=== PATIENT | female | born 1990 | race African-American/Black ===

== ENCOUNTER 2016-09-05 22:11 | Inpatient (IN) ==
[2016-09-06 01:15] LABS: Basophils # 0.1 10*3/uL (0.0-0.2); Basophils % 0.3 % (0.0-0.8); Eosinophils # 0.9 10*3/uL (0.0-0.87); Eosinophils % 5.7 % (0.00-10.9); Hematocrit 35.9 VOL% (35.7-47.0); Hemoglobin 11.4 GM/DL (12.0-16.0); Immature Granulocytes % 0.5 %; Immature Granulocytes Absolute 0.08 #; Lymphocytes # 2.7 10*3/uL (1.4-4.0); Lymphocytes % 17.7 % (21.3-54.2); Mean Corpuscular HGB Conc 31.8 GM/DL (32-36); Mean Corpuscular Hemoglobin 28 PG (27-34); Mean Corpuscular Volume 88.9 FL (87-102); Mean Platelet Volume 11.8 FL (9.6-12.0); Monocytes # 1.5 10*3/uL (0.11-0.8); Monocytes % 9.9 % (1.7-12.7); Neutrophils # 9.9 10*3/uL (1.4-7.4); Neutrophils % 65.9 % (38.7-73.9); Platelet Count 215 T/CUMM (130-400); Red Blood Count 4.04 MC/CUMM (3.8-5.5); Red Cell Distribution Width 12.5 % (9.3-17.3)
[2016-09-06] MEDS ORDERED: ALBUTEROL/IPRATROPIUM 3 ML NEB RESP TX STA (01:20)
--- NOTE | 2016-09-06 01:23 | Emergency Department Note ---
IRubin Gwan, am scribing for, and in the presence of, Rudolph Baez MD 23:40. INestor Kevin Lee, MD, personally performed the services described in this documentation, ascribed by Jose Luis Conklin in my presence, and it is both accurate and complete . Arrival - Arrival Chief Complaint: Upper Respiratory Stated Complaint: weak,chest pain,nausea ED Nursing Triage Note: pt states she went to immediate care clinic today with fever and chest congestion. was diagnosed with pneumonia and asthma exacerbation and bronchiectasis. was given antibiotics but states she is feeling worse Mode of Arrival: Ambulatory Limitations: No Limitations Source: Patient, Old Records Reviewed, RN Notes Reviewed Time Seen by Provider: 09/05/16 23:32 - History of Present Illness HPI Narrative: Pt is a 25 y/o female, with a hx of asthma, who presents to the ED with a c/o chest pain that radiates to back, chest congestion and generalized weakness. Patient stated that she reported to [facility] today due to her sxs and that she was given an x-ray that resulted in dx of pneumonias and bronchiectasis. She continued to note that she has taken some of her antibiotics with no relief prompting her visit to the ED tonight. Patient confirmed that she was given antibiotics and that she was instructed to take a Z -Pack every M//. She denies any fever. Patient is follolwed by Dr. Bernard. No other problems/complaints reported in ED. Onset (ago): hour(s) Consistency: constant Severity: moderate Date of Last Menstrual Period: 07/2016 Allergies/Adverse Reactions: Allergies Allergy/AdvReac Type Severity Reaction Status Date / Time No Known Allergies Allergy Unverified 10/15/15 18:01 Home Medications: Home Medications Medication Instructions Recorded Confirmed Type Mometasone/Formoterol 100-5 2 puff INH BID 06/28/16 06/28/16 History [Dulera 100-5] Montelukast Tab [Singulair Tab] 10 mg PO DAILY #30 tablet 06/28/16 Rx Review of System - Review of System 12 point system: reviewed and no additional remarkable complaints except as stated - Review of System Constitutional: Present: as per HPI, weakness Respiratory: Present: as per HPI, other (chest congestion) Cardiovascular: Present: as per HPI, chest pain Medical,Surgical,& Family Hx - Medical History Cardio: No history of: Hypertension Neurology: History of: Seizures (Childhood. Not on meds at this time.) Respiratory: History of: Asthma, Bronchitis (bronchiectasis) - Surgical History HEENT Surgeries: Surgical HX of: Tonsilectomy & Adenoidectomy Reproductive Surgeries: Surgical HX of;: Gynecologic Surgery (breast reduction) - Family History Family History: Reports;: Family Hypertension - Social History Smoking Status: Never smoker Frequency of Alcohol Use: None Type of Drug Use: None Exam Vital Signs: Vital Signs Temperature 97.5 F L 09/05/16 23:25 Pulse Rate 100 H 09/06/16 01:32 Respiratory Rate 22 09/06/16 01:32 Blood Pressure 127/97 09/05/16 23:25 O2 Sat by Pulse Oximetry 100 09/06/16 01:32 - General General appearance: alert, in no apparent distress - Head Head exam: Present: atraumatic, normocephalic - Eye Eye exam: Present: normal appearance, PERRL, EOMI - ENT ENT exam: Present: normal oropharynx, mucous membranes moist, TM's normal bilaterally, normal external ear exam - Neck Neck exam: Present: full ROM, trachea midline. Absent: tenderness - Chest Chest inspection: Present: symmetric chest wall rise. Absent: tenderness - Respiratory Respiratory exam: Present: normal lung sounds bilaterally. Absent: respiratory distress - Cardiovascular Cardiovascular exam: Present: tachycardia, normal heart sounds. Absent: murmur - Extremities Exam Extremities exam: Present: full ROM. Absent: tenderness - Back Exam Back exam: Present: full ROM - Neurological Exam Neurological exam: Present: alert, oriented X3, CN II-XII intact. Absent: motor sensory deficit - Psychiatric Psychiatric exam: Present: normal affect, normal mood - Skin Skin exam: Present: warm, dry, intact, normal color Course Course Narrative: given pts hx of bronchiectasis will admit for IV abx, pulmonary toilet, and pulm consult Results - Labs CBC & BMP: 09/05/16 00:25 09/05/16 00:25 Lab Results: I have reviewed the patients labs Labs: Laboratory Tests 09/05/16 00:25 WBC 15.0 H RBC 4.04 Hgb 11.4 L Hct 35.9 MCHC 31.8 L Plt Count 215 Lymph % (Auto) 17.7 L Neut # (Auto) 9.9 H Dane # (Auto) 1.5 H Eos # (Auto) 0.9 H Microbiology 09/05/16 01:12 Nasal Aspirate Influenza Types A,B Antigen (LISA) - Final Negative for Influenza A Ag Negative for Influenza B Ag Laboratory Tests 09/05/16 00:25 Sodium 141 Potassium 4.0 Chloride 106 Carbon Dioxide 22 Anion Gap 17.0 H BUN 10 Creatinine 0.60 Albumin/Globulin Ratio 1.0 L Laboratory Tests 09/06/16 00:25 Serum , Qual Negative - Diagnostic Findings Procedure: Chest x-ray: image reviewed by me (RLL pneumonia) Disposition Clinical Impression: Pneumonia, Bronchiectasis Case discussed with: patient Disposition: Still a Patient Condition: Stable
[2016-09-06 01:38] LABS: Albumin 3.5 G/DL (3.4-5.0); Bilirubin,Total 0.4 MG/DL (0.2-1.0); Calcium 8.8 MG/DL (8.5-10.1); Osmolality,Calculated 278.3 MOS/KG (273-304); Total Protein 6.8 G/DL (6.4-8.3)
[2016-09-06] MEDS ORDERED: cefTRIAXone 1,000 MG in SODIUM CHLORIDE 0.9% 100 ML IV STA (01:56)
[2016-09-06] MEDS ORDERED: cefTRIAXone 1,000 MG VIAL ONE (02:24)
[2016-09-06] MEDS ORDERED: SODIUM CHLORIDE 0.9% 100 ML IV ONE (02:24)
[2016-09-06] MEDS ORDERED: ALBUTEROL 2.5 MG/3 ML NEB RESP TX PRN (02:50)
--- NOTE | 2016-09-06 02:59 | Hospitalist History & Physical ---
Assessment and Plan (1) Bacterial pneumonia Status: Acute Current Visit: No (2) Bronchiectasis Status: Acute Assessment and plan: Plan for this patient will be admission to our service. Start her on IV antibiotics schedule breathing treatments and consult pulmonary for assistance. Once home meds are confirmed continue those as appropriate Current Visit: No History of Present Illness Chief complaint: Cough and fever History of present illness: Ms. Piedra is a 25 year old female with past medical history of bronchiectasis and asthma who presents to our hospital tonight. Apparently she went to immediate care clinic today with fever and chest congestion and was diagnosed with a pneumonia and asthma exacerbation. She is given antibiotics but stated that she felt worse and came to our hospital for further evaluation. She seen Dr. Bernard in the past for her bronchiectasis. I was consulted to admit her from the ER. Home Medications Medication Instructions Recorded Confirmed Type Mometasone/Formoterol 100-5 2 puff INH BID 06/28/16 06/28/16 History [Dulera 100-5] Montelukast Tab [Singulair Tab] 10 mg PO DAILY #30 tablet 06/28/16 Rx Allergies Allergy/AdvReac Type Severity Reaction Status Date / Time No Known Allergies Allergy Unverified 10/15/15 18:01 Medical,Surgical,& Family Hx - Medical History Cardio: No history of: Hypertension Neurology: History of: Seizures (Childhood. Not on meds at this time.) Respiratory: History of: Asthma, Bronchitis (bronchiectasis) - Surgical History HEENT Surgeries: Surgical HX of: Tonsilectomy & Adenoidectomy Reproductive Surgeries: Surgical HX of;: Gynecologic Surgery (breast reduction) - Family History Family History: Reports;: Family Hypertension - Social History Smoking Status: Never smoker Frequency of Alcohol Use: None Type of Drug Use: None 12 point system: reviewed and no additional remarkable complaints except as stated Exam - Constitutional Vitals: Period Temp Pulse Resp BP Sys/Ramirez Pulse Ox Last 24 Hr 97.5 F-97.5 F 100-124 18-22 127-127/97-97 96-100 General appearance: over weight - Head Head exam: Present: normal inspection - Eye Eye exam: Present: EOMI Pupils: Present: LENA - ENT ENT exam: Present: normal exam - Neck Neck exam: Present: normal inspection - Respiratory Respiratory exam: Present: clear to auscultation bilaterally - Cardiovascular Cardiovascular exam: Present: tachycardia - GI/Abdominal GI/Abdominal exam: Present: normal bowel sounds - Extremities Exam Extremities exam: Present: normal inspection - Back Exam Back exam: Present: normal inspection - Neurological Exam Neurological exam: Present: alert, oriented X3 - Psychiatric Psychiatric exam: Present: normal affect - Skin Skin exam: Present: normal color Results - Labs CBC & BMP: 09/05/16 00:25 09/05/16 00:25
[2016-09-06] MEDS: ACETAMINOPHEN 325 MG TABLET PO PRN ×3 (04:06→12:10)
[2016-09-06] MEDS: AZITHROMYCIN INJ 500 MG in SODIUM CHLORIDE 0.9% 250 ML IV SCH (04:06)
[2016-09-06] MEDS: ONDANSETRON 4 MG/2 ML VIAL IV PRN ×2 (04:09→18:53)
[2016-09-06 04:34] LABS: Eosinophils 2 % (0-10); Lymphocytes 18 % (20-55); Segmented Neutrophils 72 % (50-85)
[2016-09-06 04:35] LABS: Platelet Estimate Normal; Total Cells Counted 100
--- NOTE | 2016-09-06 06:38 | XRay Report ---
XR chest 2V Indication: Cough. Chest 2 views: Comparison 06/28/2016. Bibasilar infiltrates are now present. Heart size is normal. Pleural spaces appear clear. Morbid obesity again shown. Impression: Bibasilar pneumonia. PROCEDURE INTERPRETED AT [facility] DEPARTMENT OF RADIOLOGY Final Report Signed by: Ken Pineda M.D.
[2016-09-06] MEDS ORDERED: ALBUTEROL/IPRATROPIUM 3 ML NEB RESP TX SCH (07:00)
[2016-09-06] MEDS: PANTOPRAZOLE 40 MG TABLET PO SCH (08:05)
--- NOTE | 2016-09-06 09:20 | Pulmonology Consult Note ---
Assessment and Plan (1) Asthma with exacerbation Status: Acute Assessment and plan: She is not actively wheezing. Agree with using low-dose steroids. Continue bronchodilators. Continue her controller medication which has been Dulera 100/ 5 1 puff BID. Current Visit: No (2) Bronchiectasis Status: Acute Assessment and plan: She has cylindrical bronchiectasis involving the left lower lobe. The area of pneumonia on x-ray is on the opposite side. Current Visit: No (3) Bacterial pneumonia Status: Acute Assessment and plan: Likely community-acquired bronchopneumonia involving the right lower lobe. With her asthma and bronchiectasis I think we need broader coverage. Current Visit: No History of Present Illness Chief complaint: Cough congestion fever History of present illness: Ms. Piedra is a 25 year old female who has known asthma and bronchiectasis involving her left lower lobe. She had the onset a couple days ago of increased cough congestion and fever. She has had a poor appetite and has actually vomited some. I have been following her since last year. We did a CT scan showed bronchiectasis in the left lower lobe. She was having a good bit of thick green sputum production which has gotten better. He is not taking Zithromax 3 days a week to suppress infections. Her home medicines include Dulera and Singulair. She also takes Zithromax 250 mg Saturday. Home Medications Medication Instructions Recorded Confirmed Type Mometasone/Formoterol 100-5 2 puff INH BID 06/28/16 09/06/16 History [Dulera 100-5] Montelukast Tab [Singulair Tab] 10 mg PO DAILY #30 tablet 06/28/16 09/06/16 Rx Azithromycin Tab [Zithromax Tab] 250 mg PO DIRECTED 09/06/16 09/06/16 History Allergies Allergy/AdvReac Type Severity Reaction Status Date / Time No Known Allergies Allergy Unverified 10/15/15 18:01 12 point system: reviewed and no additional remarkable complaints except as stated - Constitutional Constitutional: Present: fatigue, fever(s) - EENT Nose, mouth and throat: Present: nasal congestion - Cardiovascular Cardiovascular: Present: dyspnea, dyspnea on exertion, orthopnea - Respiratory Respiratory: Present: cough, dyspnea, dyspnea on exertion, wheezing, change in phlegm color - Gastrointestinal Gastrointestinal: Present: nausea, vomiting Exam (Pulmonay) H&P - Constitutional Vitals: Period Temp Pulse Resp BP Sys/Ramirez Pulse Ox Last 24 Hr 97.2 F-98.5 F 106-115 18-18 103-114/56-80 94-97 Exam: Vital signs are normal. O2 sat 95% on room air. Pupils react to light. Throat is clear. Neck supple no bruits. Chest reveals some rales at the right base. Mild expiratory rhonchi bilaterally. Heart normal rate rhythm no murmurs. Abdomen soft nontender. No masses. Obese unable to palpate abdominal organs. Extremities no clubbing cyanosis or edema. Calves nontender. Medical,Surgical,& Family Hx - Medical History Cardio: No history of: Hypertension Neurology: History of: Seizures (Childhood. Not on meds at this time.) Respiratory: History of: Asthma, Bronchitis (bronchiectasis) - Surgical History HEENT Surgeries: Surgical HX of: Tonsilectomy & Adenoidectomy Reproductive Surgeries: Surgical HX of;: Gynecologic Surgery (breast reduction) - Family History Family History: Reports;: Family Hypertension - Social History Smoking Status: Never smoker Frequency of Alcohol Use: None Type of Drug Use: None Results - Labs CBC & BMP: 09/05/16 00:25 09/05/16 00:25 Lab Results: I have reviewed the past 24 hour labs - Diagnostic Findings Procedure: Chest x-ray: image reviewed by me (Right lower lobe infiltrate. Patchy changes at left base unchanged from before.)
[2016-09-06] MEDS: methylPREDNISolone SOD SUC 40 MG/1 ML VIAL IV SCH ×2 (10:03→21:04)
[2016-09-06] MEDS: PIPERACILLIN/TAZOBACTAM 3,375 MG in SODIUM CHLORIDE 0.9% 100 ML IV SCH ×2 (10:04→17:49)
[2016-09-06 13:18] LABS: Free T4 (Free Thyroxine) 1.38 NG/DL (0.76-1.46); Thyroid Stimulating Hormone 5.28 uIU/ml (0.358-3.74)
[2016-09-06 13:34] LABS: Immunoglobulin G 1210 MG/DL (700-1600); Immunoglobulin M 113 MG/DL (40-230)
[2016-09-06 14:06] LABS: HIV Antigen/Antibody Result Nonreactive (Nonreactive)
--- NOTE | 2016-09-06 14:37 | Ultrasound Report ---
US thyroid Indication: Goiter. Ultrasound thyroid: No comparison. Grayscale and color Doppler imaging of the thyroid performed. Right lobe 51 x 11 x 21 mm. Left lobe 51 x 14 x 20 mm. At the lower pole of the right lobe is a heterogeneous soft tissue nodule measuring 23 x 21 x 23 mm. At the upper pole of the left lobe is a 3 x 3 x 3 mm cystic nodule. Impression: 1. Mild thyromegaly. 2. Dominant solid nodule lower pole right lobe warrants I-123 scan or biopsy. Tiny cyst upper pole left lobe noted as well. PROCEDURE INTERPRETED AT [facility] DEPARTMENT OF RADIOLOGY Final Report Signed by: Ken Pineda M.D.
--- NOTE | 2016-09-06 14:56 | Hospitalist Progress Note ---
Assessment and Plan (1) Bacterial pneumonia Status: Acute Assessment and plan: We are concerned about aspiration. Patient has had 9 pneumonia since last year. I am also concerned about immune problems. Speech has seen her today and will recommends a formal barium swallow. Patient also feels like she has allergies and has drainage but she does not think it is from her sinuses. Continue Zosyn and azithromycin Current Visit: No (2) Asthma with exacerbation Status: Acute Assessment and plan: Continue albuterol will add Symbicort and Singulair Current Visit: No (3) Obstructive sleep apnea Status: Acute Assessment and plan: Dr. Jane to evaluate Current Visit: Yes (4) Thyroid goiter Status: Acute Assessment and plan: Ultrasound shows a prominent solid right nodule which needs to be biopsied Current Visit: Yes (5) Bronchiectasis Status: Acute Assessment and plan: Continue antibiotics and steroids and albuterol Current Visit: Yes Hospitalist: Subjective Interval history: Patient is morbidly obese, has a huge thyroid goiter, wakes up with headaches and fatigue. Patient reports having 9 pneumonias in this last year. She was not premature as a baby but she was hospitalized when she was first born for bronchitis. Her brother is her only sibling and he is not ill. Patient did not seem very open to discussing sleep apnea. She has difficulty swallowing. You can hear her coughing when things get in the back of her throat. She has been told she has asthma and most likely has allergies. She does not think her postnasal drip is coming from her sinuses but it is. Patient needs allergy testing and needs to see an hospital clinic assistant in [place]. I will do IgM, IgG IgA and testing for cystic fibrosis. Exam - Constitutional Vitals: Period Temp Pulse Resp BP Sys/Ramirez Pulse Ox Last 24 Hr 97.2 F-98.5 F 100-115 16-18 103-115/56-80 94-99 Exam: Heart Rate-[RRR] Lungs-[diminished, rhonchi bilateral] GI-[+bs soft, NT, obese] Ext-[no edema] Neuro [Motor 5/5], [alert and oriented times 3] psych [normal mood and affect] General [no acute distress] Large thyroid goiter Results - Labs CBC & BMP: 09/05/16 00:25 09/05/16 00:25 Lab Results: I have reviewed the past 24 hour labs - Diagnostic Findings Procedure: Ultrasound: report reviewed by me (Right sided thyroid nodule suspicious in nature. Recommended fine-needle aspiration)
[2016-09-06] MEDS: ALBUTEROL 2.5 MG/3 ML NEB RESP TX SCH ×3 (15:17→23:59)
[2016-09-06] MEDS: MONTELUKAST 10 MG TABLET PO SCH (15:30)
[2016-09-06] MEDS: BUDESONIDE/FORMOTEROL 160-4.5 INHALER 6 GM INH SCH ×2 (15:31→21:04)
--- NOTE | 2016-09-06 16:03 | Sleep Medicine Consult ---
Assessment and Plan (1) Obstructive sleep apnea Status: Acute Assessment and plan: It is possible that she could have a history of sleep apnea given her issues with orthopnea, nocturnal reflux associated with sleep, hypothyroidism, obesity , and crowded upper airway. She is very apprehensive about sleep evaluation but agreeable to HST evaluation while in the hospital. Current Visit: Yes (2) Thyroid goiter Status: Acute Assessment and plan: I would recommend thyroid replacement therapy if not already treated given that she has a history of thyroid goiter and evidence of hypothyroidism. This may decrease risk for obstructive sleep apnea. Current Visit: Yes (3) Obesity, unspecified Status: Acute Assessment and plan: Patient encouraged to continue to work on weight loss thru appropriate dieting and exercise. The combination of weight loss and CPAP therapy for obstructive sleep apnea is better than either therapy alone for obstructive sleep apnea. Current Visit: Yes History of Present Illness Chief complaint: Sleep apnea History of present illness: Ms. Piedra is a 25 year old female with recurrent pneumonia and history of asthma and cylindrical bronchiectasis of the left lower lobe. The patient does have a history of snoring but does not describe it as severe. She does have problems with orthopnea and sleeps on multiple pillows. She has been doing this for many years. She does have a history of reflux and vomiting in the past during her sleep. She denies any history of stopping breathing during her sleep or ever being told that she stops breathing during her sleep. She does not have any history of restlessness of her legs comfort of her legs. She expressed reservation about having sleep apnea and expressed reservation about being treated with CPAP. She was amenable to home sleep testing. She does work at a [employer] center. She does have minimal symptoms of sleepiness, having an Joanna sleepiness score of only 5. Home Medications Medication Instructions Recorded Confirmed Type Mometasone/Formoterol 100-5 2 puff INH BID 06/28/16 09/06/16 History [Dulera 100-5] Montelukast Tab [Singulair Tab] 10 mg PO DAILY #30 tablet 06/28/16 09/06/16 Rx Azithromycin Tab [Zithromax Tab] 250 mg PO DIRECTED 09/06/16 09/06/16 History Allergies Allergy/AdvReac Type Severity Reaction Status Date / Time No Known Allergies Allergy Unverified 10/15/15 18:01 Review of systems: Otherwise unremarkable from a sleep standpoint. Exam (Pulmonay) H&P - Constitutional Vitals: Period Temp Pulse Resp BP Sys/Ramirez Pulse Ox Last 24 Hr 97.2 F-98.5 F 100-115 16-18 103-115/56-80 94-99 Exam: She is alert and responsive in no acute distress. Pupils equal round reactive to light and accommodation. Extraocular movements intact. Oropharynx with a class III Mallampati exam. Neck is supple without adenopathy or thyromegaly. She does have a 15 inch neck circumference. Chest with symmetrical breath sounds without focal wheeze, rhonchi, or rales. Cardiac exam reveals a regular rhythm without murmur or gallop. Abdomen soft nontender without palpable hepatosplenomegaly or mass. Extremities are without clubbing, cyanosis, or edema. Neurologically, she is grossly intact. She moves all extremities with good strength. Medical,Surgical,& Family Hx - Medical History Cardio: No history of: Hypertension Neurology: History of: Seizures (Childhood. Not on meds at this time.) Respiratory: History of: Asthma, Bronchitis (bronchiectasis) - Surgical History HEENT Surgeries: Surgical HX of: Tonsilectomy & Adenoidectomy Reproductive Surgeries: Surgical HX of;: Gynecologic Surgery (breast reduction) - Family History Family History: Reports;: Family Hypertension - Social History Smoking Status: Never smoker Frequency of Alcohol Use: None Type of Drug Use: None Results - Labs CBC & BMP: 09/05/16 00:25 09/05/16 00:25 Lab Results: I have reviewed the past 24 hour labs Labs: TSH is elevated and consistent with hypothyroidism.
[2016-09-07] MEDS ORDERED: cefTRIAXone 1,000 MG in SODIUM CHLORIDE 0.9% 100 ML IV SCH (01:00)
[2016-09-07] MEDS: PIPERACILLIN/TAZOBACTAM 3,375 MG in SODIUM CHLORIDE 0.9% 100 ML IV SCH ×3 (01:43→17:16)
[2016-09-07] MEDS: AZITHROMYCIN INJ 500 MG in SODIUM CHLORIDE 0.9% 250 ML IV SCH (03:24)
[2016-09-07] MEDS: ALBUTEROL 2.5 MG/3 ML NEB RESP TX SCH ×5 (03:55→19:19)
[2016-09-07] MEDS: ONDANSETRON 4 MG/2 ML VIAL IV PRN ×2 (04:24→15:41)
[2016-09-07 07:03] LABS: Basophils % 0.1 % (0.0-0.8); Hematocrit 35.9 VOL% (35.7-47.0); Hemoglobin 11.6 GM/DL (12.0-16.0); Immature Granulocytes Absolute 0.13 #; Lymphocytes # 0.7 10*3/uL (1.4-4.0); Lymphocytes % 5.3 % (21.3-54.2); Mean Corpuscular HGB Conc 32.3 GM/DL (32-36); Mean Corpuscular Hemoglobin 29 PG (27-34); Mean Corpuscular Volume 88.2 FL (87-102); Mean Platelet Volume 12.2 FL (9.6-12.0); Monocytes # 0.7 10*3/uL (0.11-0.8); Monocytes % 5.5 % (1.7-12.7); Neutrophils # 11.8 10*3/uL (1.4-7.4); Neutrophils % 88.1 % (38.7-73.9); Platelet Count 252 T/CUMM (130-400); Red Blood Count 4.07 MC/CUMM (3.8-5.5); Red Cell Distribution Width 12.7 % (9.3-17.3); White Blood Count 13.4 T/CUMM (4-12)
[2016-09-07 07:34] LABS: Calcium 8.7 MG/DL (8.5-10.1); Osmolality,Calculated 283.5 MOS/KG (273-304); Potassium 4.8 MMOL/L (3.5-5.1)
[2016-09-07] MEDS: BUDESONIDE/FORMOTEROL 160-4.5 INHALER 6 GM INH SCH ×2 (08:39→20:14)
[2016-09-07] MEDS: PANTOPRAZOLE 40 MG TABLET PO SCH (08:39)
[2016-09-07] MEDS: MONTELUKAST 10 MG TABLET PO SCH (08:39)
[2016-09-07] MEDS: methylPREDNISolone SOD SUC 40 MG/1 ML VIAL IV SCH ×2 (08:39→21:22)
--- NOTE | 2016-09-07 08:56 | Pulmonology Progress Note ---
Pulmonary - PN: Subj Interval history: This 25-year-old black female has asthma, left lower lobe bronchiectasis, and a right lower lobe pneumonia. She is on antibiotics and bronchodilators with the steroids. She is not having any wheezing at present. She was evaluated overnight for possible sleep apnea. Defer to Dr. Jane for that evaluation Exam (Progress Note) - Constitutional Vitals: Period Temp Pulse Resp BP Sys/Ramirez Pulse Ox Last 24 Hr 97.2 F-98.7 F 88-113 16-20 102-128/49-80 94-100 Exam: She is alert and afebrile oriented. Pupils react to light. Throat is clear. Neck supple no bruits. Chest reveals minimal rhonchi at the right base. Heart normal rate and rhythm no murmurs. Abdomen soft no masses. Bowel sounds present. Extremities no clubbing cyanosis edema. Calves nontender Results - Labs CBC & BMP: 09/07/16 05:42 09/07/16 05:42 Lab Results: I have reviewed the past 24 hour labs Assessment and Plan (1) Asthma with exacerbation Status: Acute Assessment and plan: She is not actively wheezing. Agree with using low-dose steroids. Continue bronchodilators. Continue her controller medication which has been Dulera 100/ 5 1 puff BID. 09/07/2016 asthma seem to be controlled. Could change to oral medications. Current Visit: No (2) Bronchiectasis Status: Acute Assessment and plan: She has cylindrical bronchiectasis involving the left lower lobe. The area of pneumonia on x-ray is on the opposite side. 09/07/2016 continue her Zithromax Saturday long-term Current Visit: No (3) Bacterial pneumonia Status: Acute Assessment and plan: Likely community-acquired bronchopneumonia involving the right lower lobe. With her asthma and bronchiectasis I think we need broader coverage. 09/07/2016 clinically improved. Continue IV medications. Recheck chest x-ray tomorrow Current Visit: No
--- NOTE | 2016-09-07 10:46 | Hospitalist Progress Note ---
Assessment and Plan (1) Bacterial pneumonia Status: Acute Assessment and plan: Swallow evaluation pending, cont zosyn and albuteral nebulizer Current Visit: No (2) Asthma with exacerbation Status: Acute Assessment and plan: Continue albuterol nebulizer, Symbicort and Singulair Current Visit: No (3) Obstructive sleep apnea Status: Acute Assessment and plan: Dr. Jane did hst in hospital last night Current Visit: Yes (4) Thyroid goiter Status: Acute Assessment and plan: Ultrasound shows a prominent solid right nodule. FNA has to be done outpatient per radiology Current Visit: Yes (5) Bronchiectasis Status: Acute Assessment and plan: Continue antibiotics and steroids and albuterol Current Visit: Yes Hospitalist: Subjective Interval history: Radiology had called back and said the fine-needle aspiration biopsy has to be done outpatient. Patient had her swallow evaluation under fluoroscopy today. Results pending. She can possibly go home tomorrow if okay with pulmonary. She was asking to go home today but I want her to give another day of IV antibiotics. Exam - Constitutional Vitals: Period Temp Pulse Resp BP Sys/Ramirez Pulse Ox Last 24 Hr 97.2 F-98.7 F 88-113 16-20 102-128/49-80 94-100 Results - Labs CBC & BMP: 09/07/16 05:42 09/07/16 05:42 Lab Results: I have reviewed the past 24 hour labs Labs: Blood cultures are negative no growth, IgM 113, IgG 1210, HIV negative, TSH 5.28 - Diagnostic Findings Procedure: X-ray: report reviewed by me (Swallow eval pending)
--- NOTE | 2016-09-07 13:57 | Sleep Medicine Progress Note ---
Assessment and Plan (1) Obstructive sleep apnea Status: Acute Assessment and plan: This patient does have significant obstructive sleep apnea by HST evaluation. We will initiate auto titration CPAP and have her schedule for follow-up in the sleep clinic. Current Visit: Yes (2) Thyroid goiter Status: Acute Current Visit: Yes (3) Obesity, unspecified Status: Acute Current Visit: Yes Sleep Medicine Subjective Interval history: Patient did undergo overnight home sleep testing and did have moderate obstructive sleep apnea with some severe O2 desaturation. She had a diagnostic AHI of 17.5 and had O2 desaturations to lows of 69%. I reviewed the results with her. I do think that she needs to be treated for her obstructive sleep apnea. I discussed and explained how CPAP therapy works. We will initiate auto titration CPAP and follow-up her in the clinic. Hopefully we will be able to have her a CPAP device with discharge, though with [facility], her evaluation and treatment may require precertification. Exam (Progress Note) - Constitutional Vitals: Period Temp Pulse Resp BP Sys/Ramirez Pulse Ox Last 24 Hr 97.2 F-98.7 F 88-113 16-20 102-128/49-80 94-100 Exam: She is alert and responsive in no acute distress. Chest with good air movement no focal wheeze, rhonchi, or rales. Cardiac exam reveals regular rhythm without murmur or gallop. Abdomen soft nontender but obese. Extremities without clubbing cyanosis or edema. Neurologically, she is grossly intact. Results - Labs CBC & BMP: 09/07/16 05:42 09/07/16 05:42 Lab Results: I have reviewed the past 24 hour labs
[2016-09-07] MEDS: ACETAMINOPHEN 325 MG TABLET PO PRN (20:14)
[2016-09-08] MEDS: ALBUTEROL 2.5 MG/3 ML NEB RESP TX SCH ×3 (00:05→07:53)
[2016-09-08] MEDS: PIPERACILLIN/TAZOBACTAM 3,375 MG in SODIUM CHLORIDE 0.9% 100 ML IV SCH ×2 (01:54→10:24)
[2016-09-08] MEDS: ONDANSETRON 4 MG/2 ML VIAL IV PRN (03:50)
[2016-09-08] MEDS: ACETAMINOPHEN 325 MG TABLET PO PRN (03:51)
[2016-09-08 08:08] VITALS: BP 131/77
--- NOTE | 2016-09-08 08:15 | XRay Report ---
Exam: XR chest 2V Date: 09/08/2016 4:00 AM Indication: Right lower lobe pneumonia follow-up Comparison: 09/05/2016 Technical: PA lateral Findings: The heart is normal in size. The neck superimposes exam. The mediastinum appears intact. Right basilar and left retrocardiac infiltrate suspected. No obvious effusion or pneumothorax. Lateral marginal osteophytes are present. Impression: Bilateral basilar pneumonic infiltrate PROCEDURE INTERPRETED AT [facility] DEPARTMENT OF RADIOLOGY Final Report Signed by: Dr. Augusto Frey
--- NOTE | 2016-09-08 08:30 | Discharge Summary ---
Hospital Course - Hospital Course Hospital Course: 25-year-old morbidly obese -[place] female was admitted for shortness of breath. Patient has had reoccurring bacterial pneumonias several times over the last year. Dr. Bernard was consulted and feels she has community-acquired bronchopneumonia with bronchiectasis. Dr. Bernard has been treating her with for asthma with Dulera. Patient was thought to have an asthma exacerbation on top of her pneumonia. Patient was started on azithromycin and Rocephin but Dr. Bernard changed her over to Zosyn. There was a concern about aspiration and speech was involved. Swallow evaluation showed a concern for aspiration but the barium swallow under fluoroscopy showed no evidence of aspiration. However a GI consult was recommended due to patient's significant problems with reflux and the role it may be playing due to her recurring pneumonias. Patient will be discharged on Augmentin with follow-up scheduled with Dr. Bernard in 1-2 weeks. Patient will be placed on a steroid taper and is to continue albuterol through her nebulizer machine at least 3 times a day. Patient's morbid obesity puts her at risk for obstructive sleep apnea. Patient wakes up with headaches and tired almost every morning. Dr. Annalise Jane has seen her and done an HST which was positive for sleep apnea. He recommends auto titrating CPAP for her. She did not tolerate it well overnight and really has no interest in treating her sleep apnea. I have warned her of the side effects of not treating it. To help with her reflux worse and you her home with a foam wedge and omeprazole. I also noted the patient had a large thyroid goiter. Ultrasound of her thyroid showed a questionable nodule on the right side. Radiology had indicated that a fine-needle aspiration must be performed as an outpatient. These appointments will be made for her. I also asked her to see the allergy clinic and her aunt wants her to go to Dr. Moore who is an software program manager in [facility] to be tested for allergies. Her IgM and IgG levels were normal. Her IgE level is still pending. Patient has changed her primary care doctor from Dr. Hanson to Dr. Ehsan Mcneill. It is essential that she complete the fine-needle aspiration of this right thyroid nodule. I had requested an appointment for her to follow-up with Dr. Jane but I doubt she will be compliant. She needs to follow with Dr. Bernard to ensure this pneumonia has completely resolved. - Time spent with patient Time with patient DS: Greater than 30 minutes (50 min) Diagnosis - Discharge Diagnosis (1) Bacterial pneumonia Status: Acute (2) Asthma with exacerbation Status: Acute (3) Obstructive sleep apnea Status: Acute (4) Thyroid goiter Status: Acute (5) Bronchiectasis Status: Acute Specialty Discharge - Follow Up or Referrals Follow up with: Gene Bernard MD [Physician] - 1 Week Annalise Jane MD [Physician] - 2 Weeks (autotitration cpap ) Ricki Lopez MD [Physician] - 1 Week (gerd ) Discharge Plan - Discharge Data Disposition: Disch To Home/Self Care Condition at Discharge: Stable Discharge Diet: low fat, low cholesterol Activity: resume usual activities as tolerated Hygiene: no restrictions Weight Bearing at Discharge: full weight bearing Driving: no restrictions - Discharge Medications New Amoxicillin/Clav Tab [Augmentin Tab] 875 mg PO BID #20 tablet Montelukast Tab [Singulair Tab] 10 mg PO DAILY #30 tablet predniSONE TAB [PredniSONE] 20 mg PO DAILY #30 tablet Albuterol Inhaler [Proventil Inhaler] 2 puff INH Q6H PRN #1 inhaler PRN Reason: Shortness Of Breath/Wheezing Albuterol Neb [Proventil Neb] 2.5 mg RESP TX TID #90 vial Omeprazole 40 mg PO DAILY #30 capsule Continue Mometasone/Formoterol 100-5 [Dulera 100-5] 2 puff INH BID Discontinued Azithromycin Tab [Zithromax Tab] 250 mg PO DIRECTED - Follow Up or Referral Follow Up: Gene Bernard MD [Physician] - 1 Week Ricki Lopez MD [Physician] - 1 Week (gerd ) Annalise Jane MD [Physician] - 2 Weeks (autotitration cpap ) - Forms/Instructions Forms: Acute Care Work/School Release Instructions: Albuterol (By breathing), Prednisone (By mouth), Omeprazole (By mouth), Amoxicillin/Clavulanate Potassium (By mouth), Montelukast (By mouth) Additional Discharge Instructions: sit upright while eating, small bites and sips. FNA by IR right thyroid nodule. Allergy Clinic appointment Exam - Constitutional Vitals: Period Temp Pulse Resp BP Sys/Ramirez Pulse Ox Last 24 Hr 97.8 F-98.8 F 84-109 18-20 120-133/71-87 93-99 General appearance: no acute distress, morbidly obese - Respiratory Respiratory exam: Present: decreased breath sounds. Absent: rhonchi, wheezes - Cardiovascular Cardiovascular exam: Present: regular rate and rhythm - GI/Abdominal GI/Abdominal exam: Present: normal bowel sounds, soft. Absent: tenderness Discharge Results Procedures and tests throughout hospitalization: Pending Orders 09/06/16 Immunoglobulin E Stat 09/06/16 12:50 Cystic Fibrosis Mutation Panel Routine DS: Provider Date of admission: 09/06/16 02:50 Primary care physician: . No PCP Attending physician on admission: Paulette Arevalo MD Consults: 09/06/16 12:22 Consult to Sleep Center [CONS] Routine Reason for Sleep Center: Sleep Center Physician Consult Comment: severe xochilt, reoccurring pneumonia Discharging clinician: Paulette Arevalo MD
[2016-09-08] MEDS: methylPREDNISolone SOD SUC 40 MG/1 ML VIAL IV SCH (08:56)
[2016-09-08] MEDS: PANTOPRAZOLE 40 MG TABLET PO SCH (08:57)
[2016-09-08] MEDS: MONTELUKAST 10 MG TABLET PO SCH (08:57)
[2016-09-08] MEDS: BUDESONIDE/FORMOTEROL 160-4.5 INHALER 6 GM INH SCH (08:57)
[2016-09-08] MEDS ORDERED: AZITHROMYCIN 250 MG TABLET PO SCH (09:00)
--- NOTE | 2016-09-08 12:23 | Pulmonology Progress Note ---
Pulmonary - PN: Subj Interval history: Patient is a 25-year-old black lady that has a history of having some asthma with mild bronchiectasis and pneumonia. She has been getting bronchodilators and antibiotics and is feeling much better. She is sitting up and walking around and wants to go home. She says her cough and congestion are much better. Her chest x-ray is better with less right lower lobe infiltrate. Exam (Progress Note) - Constitutional Vitals: Period Temp Pulse Resp BP Sys/Ramirez Pulse Ox Last 24 Hr 97.8 F-98.8 F 84-109 18-20 120-133/71-87 93-99 General appearance: no acute distress, over weight - Head Head exam: Present: normal inspection, normocephalic - Eye Eye exam: Present: EOMI. Absent: scleral icterus Pupils: Present: LENA - ENT ENT exam: Present: normal exam - Neck Neck exam: Present: normal inspection. Absent: lymphadenopathy, thyromegaly - Respiratory Respiratory exam: Present: rhonchi, other (She has good breath sounds with just some minimal rhonchi.). Absent: accessory muscle use, wheezes - Cardiovascular Cardiovascular exam: Present: regular rate and rhythm. Absent: gallop, systolic murmur - GI/Abdominal GI/Abdominal exam: Present: normal bowel sounds, soft. Absent: organomegaly, tenderness - Extremities Exam Extremities exam: Absent: calf tenderness, edema - Neurological Exam Neurological exam: Present: alert, oriented X3, normal gait, CN II-XII intact - Psychiatric Psychiatric exam: Present: normal affect, normal mood - Skin Skin exam: Present: warm, dry Results - Labs CBC & BMP: 09/07/16 05:42 09/07/16 05:42 - Diagnostic Findings Procedure: Chest x-ray: image reviewed by me, report reviewed by me (Chest x- ray shows improving right lower lobe infiltrate.) Assessment and Plan (1) Asthma with exacerbation Status: Acute Assessment and plan: The patient has a history of asthma and she is breathing better today. She says she has bronchodilators at home. Current Visit: No (2) Bronchiectasis Status: Acute Assessment and plan: She has some mild scarring in her left base. Current Visit: No (3) Bacterial pneumonia Status: Acute Assessment and plan: She has had some right lower lobe pneumonia and is improving. She wants to go home today. She will continue with oral antibiotics. Current Visit: No (4) Obstructive sleep apnea Status: Acute Assessment and plan: She has been evaluated by Dr. Jane. Current Visit: Yes Specialty Discharge - Follow Up or Referrals Follow up with: Gene Bernard MD [Physician] - 1 Week Annalise Jane MD [Physician] - 2 Weeks (autotitration cpap ) Ricki Lopez MD [Physician] - 1 Week (gerd )
== END 2016-09-08 12:20 | disposition home or self-care (01) | DRG 191 ==
LOC: N.ED 22:11 → N.EDINP 09-06 02:50 → N.5E 09-06 03:23
PROVIDERS: ADMIT Internal Medicine; ATTEND Internal Medicine

== ENCOUNTER 2017-02-02 10:39 | Inpatient (IN) ==
--- NOTE | 2017-02-02 12:22 | XRay Report ---
Exam: XR chest 2V Date: 02/02/2017 11:33 AM Indication: Shortness of breath Comparison: 01/22/2017 Technical: PA lateral Findings: The heart, mediastinum are intact. Degenerative lateral marginal osteophytes are present. Small infiltrate suspected in the retrocardiac region left base. Impression: 1. Left basilar pneumonic infiltrate PROCEDURE INTERPRETED AT [facility] DEPARTMENT OF RADIOLOGY Final Report Signed by: Dr. Augusto Frey
[2017-02-02 13:08] LABS: Basophils % 0.3 % (0.0-0.8); Eosinophils % 0.5 % (0.00-10.9); Hematocrit 38.6 VOL% (35.7-47.0); Hemoglobin 12.7 GM/DL (12.0-16.0); Immature Granulocytes % 0.3 %; Immature Granulocytes Absolute 0.02 #; Lymphocytes # 2.3 10*3/uL (1.4-4.0); Lymphocytes % 29.6 % (21.3-54.2); Mean Corpuscular HGB Conc 32.9 GM/DL (32-36); Mean Corpuscular Hemoglobin 29 PG (27-34); Mean Corpuscular Volume 88.5 FL (87-102); Mean Platelet Volume 11.8 FL (9.6-12.0); Monocytes # 0.7 10*3/uL (0.11-0.8); Monocytes % 9.1 % (1.7-12.7); Neutrophils # 4.6 10*3/uL (1.4-7.4); Neutrophils % 60.2 % (38.7-73.9); Platelet Count 222 T/CUMM (130-400); Red Blood Count 4.36 MC/CUMM (3.8-5.5); Red Cell Distribution Width 13.1 % (9.3-17.3); White Blood Count 7.6 T/CUMM (4-12)
[2017-02-02 13:33] LABS: Osmolality,Calculated 273.5 MOS/KG (273-304); Potassium 3.9 MMOL/L (3.5-5.1)
[2017-02-02] MEDS ORDERED: KETOROLAC 60 MG/2 ML VIAL IM STA (14:05)
[2017-02-02] MEDS ORDERED: KETOROLAC 60 MG/2 ML VIAL IM ONE (14:08)
[2017-02-02] MEDS ORDERED: ALBUTEROL 2.5 MG/3 ML NEB RESP TX PRN (14:33)
--- NOTE | 2017-02-02 14:35 | Emergency Department Note ---
Arrival - Arrival Chief Complaint: Upper Respiratory Stated Complaint: Sharp chest pain with cough ED Nursing Triage Note: c/o being here apx. week ago and was told she had pneumonia., states she is not feeling any better, + coughing, + congestion, + fever, + aching all over., states she finished her antibiotics Mode of Arrival: Ambulatory Limitations: No Limitations Source: Patient, RN Notes Reviewed Time Seen by Provider: 02/02/17 11:14 - History of Present Illness HPI Narrative: 26 yo black female presents to ED with CC of pneumonia. She was seen one week ago in this ED and treated with IM antibiotics and Levaquin. She states she is not better. C/O cough, congestion, fever, body aches, and pain with breathing. PMHx significant for asthma, bronchiestasis, and frequent episodes of pneumonia. 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 Date of Last Menstrual Period: january 22 2017 Allergies/Adverse Reactions: Allergies Allergy/AdvReac Type Severity Reaction Status Date / Time No Known Allergies Allergy Verified 02/02/17 10:44 Home Medications: Home Medications Medication Instructions Recorded Confirmed Type Mometasone/Formoterol 100-5 2 puff INH BID 06/28/16 02/02/17 History [Dulera 100-5] Albuterol Inhaler [Proventil 2 puff INH Q6H PRN #1 inhaler 09/08/16 02/02/17 Rx Inhaler] Albuterol Neb [Proventil Neb] 2.5 mg RESP TX TID #90 vial 09/08/16 02/02/17 Rx Ciprofloxacin Tab [Cipro Tab] 500 mg PO BID 02/02/17 02/02/17 History Ketorolac Tab [Toradol Tab] 10 mg PO TID 02/02/17 02/02/17 History Promethazine Tab [Phenergan Tab] 25 mg PO Q4H 02/02/17 02/02/17 History buPROPion XL [Wellbutrin Xl] 150 mg PO DAILY 02/02/17 02/02/17 History Review of System - Review of System 12 point system: reviewed and no additional remarkable complaints except as stated - Review of System Constitutional: Present: as per HPI, chills, fever Respiratory: Present: as per HPI, cough. Absent: respiratory distress Cardiovascular: Present: as per HPI, chest pain. Absent: dyspnea on exertion Gastrointestinal: Absent: abdominal pain, nausea, vomiting Neurological: Present: headache Medical,Surgical,& Family Hx - Medical History Cardio: No history of: Hypertension Neurology: History of: Seizures (Childhood. Not on meds at this time.) Respiratory: History of: Asthma, Respiratory Problems (bronchiectasis, chronic cough) - Surgical History HEENT Surgeries: Surgical HX of: Tonsilectomy & Adenoidectomy Reproductive Surgeries: Surgical HX of;: Gynecologic Surgery (breast reduction) - Family History Family History: Reports;: Family Hypertension - Social History Smoking Status: Never smoker Frequency of Alcohol Use: None Type of Drug Use: None Exam Physical Examination: - General General appearance: alert, in no apparent distress, VSS, O2 Sat 99% - Head Head exam: Present: atraumatic, normocephalic, normal inspection - Eye Eye exam: Present: normal appearance, PERRL, no conjunctival injection - ENT ENT exam: Present: mucous membranes moist - Expanded ENT Exam External ear exam: Present: normal external inspection TM/Canal exam: no erythema: Right/Left TM Nose exam: no sinus tenderness, no nasal drainage. Negative: nasal deviation Mouth exam: Present: normal external inspection Teeth exam: Present: normal inspection Throat exam: Present: tonsillar erythema. Absent: Tonsillar exudate - Neck Neck exam: Present: normal inspection, full ROM, positive lymphadenopathy. Absent: tenderness, meningismus - Chest Chest inspection: Present: normal inspection, symmetric chest wall rise, tender to palpation right lower chest - Respiratory Respiratory exam: Present: normal lung sounds bilaterally. Absent: rales, respiratory distress, wheezes - Cardiovascular Cardiovascular exam: Present: regular rate, normal rhythm, normal heart sounds - Neurological Exam Neurological exam: Present: alert, oriented X3 - Psychiatric Psychiatric exam: Present: normal affect, normal mood - Skin Skin exam: Present: warm, dry, intact Vital Signs: Vital Signs Temperature 96.6 F L 02/03/17 00:00 Pulse Rate 70 02/03/17 00:00 Respiratory Rate 20 02/03/17 00:48 Blood Pressure 133/72 02/03/17 00:00 O2 Sat by Pulse Oximetry 98 02/03/17 00:00 Course Course Narrative: 1405: Back in room to check on patient and notify of plan for possible admission. Evaluated chest pain. It seems to be pleuritic in nature. She says it has been present since at least September. Refuses ordered EKG, due to "I am not having a heart attack." 1415: Hospitalist service here. Will admit patient. - Consultations Time: 14:00 (Hospitalist service notified of pt presence and status. Will come and evaluate for admission.) Results - Labs CBC & BMP: 02/02/17 12:39 02/02/17 Unknown Lab Results: I have reviewed the patients labs - Diagnostic Findings Procedure: Chest x-ray: report reviewed by me (Left basilar pneumonic infiltrate ) Disposition Clinical Impression: Left lower lobe pneumonia, Bronchiectasis Case discussed with: patient, patient's family Disposition: Still a Patient Condition: Stable Time of Disposition: 14:15 (Admit)
[2017-02-02] MEDS ORDERED: diphenhydrAMINE CAP 25 MG CAPSULE PO PRN (14:37)
[2017-02-02] MEDS ORDERED: ACETAMINOPHEN 325 MG TABLET PO PRN ×2 (14:37)
[2017-02-02] MEDS ORDERED: DOCUSATE SODIUM 100 MG CAPSULE PO PRN (14:37)
--- NOTE | 2017-02-02 14:44 | Hospitalist History & Physical ---
Assessment and Plan - Time spent with patient Time spent with patient: Greater than 30 minutes (1) History of bronchiectasis Status: Acute Assessment and plan: 26-year-old -[place] female with history of asthma, bronchiectasis, chronic pain and previous frequent pneumonias that have failed outpatient treatment admitted by the hospitalist service with left lower lobe pneumonia. Patient will be started on Zosyn and Levaquin for full coverage for now. We will start duo nebs every 4 hours and albuterol as needed for wheezing. Will consult Dr. Bernard who is her regular director of women's services for evaluation. Patient may need to be placed on some maintenance medications for home. Since patient has continued to complain about right upper abdominal and lower chest wall pain over the last several months with no signs of pneumonia we will go ahead and get a CT of the chest abdomen and pelvis to rule out any problems. We will go ahead and recheck some labs in the morning as well as a 2 view x-ray. Dr. Ferrer will see and examine patient and further recommendations to follow. Current Visit: Yes (2) History of asthma Status: Acute Current Visit: Yes (3) Left lower lobe pneumonia Status: Acute Current Visit: Yes History of Present Illness Chief complaint: Shortness of breath and cough History of present illness: Ms. Piedra is a 26 year old -[place] female with history of asthma, bronchiectasis, chronic pain, and chronic pneumonia presenting to the ED with a 2 month history of shortness of breath with right pleuritic chest pain. Patient was seen in the ED on 12/21/2016 where she was found to have a minimal left lower lobe infiltrate and she was given Levaquin and prednisone to take as an outpatient. She was seen again in the ED on 01/22/2017 with right lower chest pain, cough and productive blood-tinged green sputum. She is not acutely ill and her O2 sats were normal but her chest x-ray showed left base pneumonia. She was treated with Tessalon Perles, Cipro, Toradol and Phenergan. Patient returns today with progressive fatigue with loss of appetite, cough and right- sided pleuritic chest pain. Upon exam patient appears fatigued with flat affect with her boyfriend in the room who seems concerned. Her chest is clear without rales or wheezing. She is afebrile and her white count is normal. Her chest x-ray does show a left basilar pneumonic infiltrate. After discussion with nurse practitioner Francisca and admitting hospitalist Dr. Ferrer with patient failing multiple outpatient treatments, it was agreed patient would be admitted for further evaluation and treatment. Once medicines are loaded into the system they will be reconciled and patient is a full code. Home Medications Medication Instructions Recorded Confirmed Type Mometasone/Formoterol 100-5 2 puff INH BID 06/28/16 09/06/16 History [Dulera 100-5] Albuterol Inhaler [Proventil 2 puff INH Q6H PRN #1 inhaler 09/08/16 Rx Inhaler] Albuterol Neb [Proventil Neb] 2.5 mg RESP TX TID #90 vial 09/08/16 Rx Amoxicillin/Clav Tab [Augmentin 875 mg PO BID #20 tablet 09/08/16 Rx Tab] Montelukast Tab [Singulair Tab] 10 mg PO DAILY #30 tablet 09/08/16 Rx Omeprazole 40 mg PO DAILY #30 capsule 09/08/16 Rx predniSONE TAB [PredniSONE] 20 mg PO DAILY #30 tablet 09/08/16 Rx Levofloxacin Tab [Levaquin Tab] 500 mg PO DAILY #7 tablet 12/21/16 Rx predniSONE TAB [PredniSONE] 20 mg PO BID #20 tablet 12/21/16 Rx Benzonatate [Tessalon] 200 mg PO TID #20 capsule 01/22/17 Rx Ciprofloxacin Tab [Cipro Tab] 500 mg PO BID #14 tablet 01/22/17 Rx Ketorolac Tab [Toradol Tab] 10 mg PO Q6H PRN #20 tablet 01/22/17 Rx Promethazine Tab [Phenergan Tab] 25 mg PO Q6H PRN #20 tablet 01/22/17 Rx Allergies Allergy/AdvReac Type Severity Reaction Status Date / Time No Known Allergies Allergy Verified 02/02/17 10:44 Medical,Surgical,& Family Hx - Medical History Cardio: No history of: Hypertension Neurology: History of: Seizures (Childhood. Not on meds at this time.) Respiratory: History of: Asthma, Bronchitis (bronchiectasis), Respiratory Problems (Bronchiectasis, chronic cough.) - Surgical History HEENT Surgeries: Surgical HX of: Tonsilectomy & Adenoidectomy Reproductive Surgeries: Surgical HX of;: Gynecologic Surgery (breast reduction) - Family History Family History: Reports;: Family Hypertension - Social History Smoking Status: Never smoker Frequency of Alcohol Use: Occasionally Type of Drug Use: None Marital Status: Single Lives With:: Alone Functional capacity: independent ambulation 12 point system: reviewed and no additional remarkable complaints except as stated Exam - Constitutional Vitals: Period Temp Pulse Resp BP Sys/Ramirez Pulse Ox Last 24 Hr 98.1 F-98.1 F 87-109 16-20 139-160/87-88 98 Exam: Constitutional System: No distress. No tremulousness. Flat affect Head: Normocephalic, atraumatic. Ears, Nose and Throat System: No evidence of Otitis or Mastoiditis. No epistaxis or discharge Eyes System: Pupils equal, round, and reactive. Extraocular muscles intact. Neck: Supple, without adenopathy, No jugular venous distention. No thyromegaly, neck mass, or prior surgery apparent. Respiratory System: Chest clear to auscultation. Cardiovascular System: Heart with regular rate and rhythm. No murmur. GI System: Abdomen soft, nontender. Normo active bowel sounds present. Musculoskeletal System: limbs with mild pedal edema. Full distal pulses. Neurological System: No discernable sensory deficit. No aphasia Psychiatric System: Conversation is rational Results - Labs CBC & BMP: 02/02/17 12:39 02/02/17 12:39 Lab Results: I have reviewed the past 24 hour labs - Impressions EKG is pending - Diagnostic Findings Procedure: Chest x-ray: report reviewed by me (Left basilar pneumonic infiltrate )
[2017-02-02] MEDS ORDERED: SODIUM CHLORIDE 0.9% 1,000 ML IV SCH (15:00)
[2017-02-02 15:03] LABS: Calcium 8.7 MG/DL (8.5-10.1); Osmolality,Calculated 275.4 MOS/KG (273-304); Potassium 3.9 MMOL/L (3.5-5.1)
[2017-02-02 15:06] LABS: Risk Ratio 3.72; VLDL CHOLESTEROL 15.4 MG/DL
[2017-02-02] MEDS: LEVOFLOXACIN INJ 750 MG in PREMIX 1 EACH IV SCH (15:20)
[2017-02-02] MEDS: ENOXAPARIN 40 MG/0.4 ML SYRINGE SUBCUT SCH (16:19)
[2017-02-02] MEDS: guaiFENesin/DM ER 600-30 MG TABLET PO SCH ×2 (17:23→21:35)
[2017-02-02] MEDS: PANTOPRAZOLE 40 MG TABLET PO SCH (17:24)
--- NOTE | 2017-02-02 17:29 | CT Report ---
Exam: CT chest PE study, Date: 02/02/2017 2:59 PM Indication: Pneumonia Comparison: Routine chest radiograph CT high-resolution chest 12/14/2015 Technical: Images were obtained from the thoracic inlet through the lung bases with 100 cc of Omnipaque 350 with axial and coronal imaging available for review. Dose reduction was performed with decreasing kv and mA and automated exposure. 3-D MIP images were obtained Total DLP described below Findings: The heart is normal in size. The aorta is unremarkable.. The pulmonary outflow tract, left and right proximal pulmonary arteries, first-order, second-order and third order branches reveal no evidence of pulmonary thromboemboli. The lungs are demonstrated with hilar adenopathy on the right and infiltrate in the left base retrocardiac region extending into the lingula segment. No obvious pleural Effusions. The mediastinum reveals a calcified node in the posterior mediastinum and bony structures are revealed degenerative spondylosis and attempted bridging syndesmophytes in the lower mid thoracic spine. Impression: 1. Adenopathy in the right hilus with 2.5 cm node present. Focal area of atelectatic change infiltrate in the lingula segment left lung with some air bronchograms and pneumonic infiltrate in the retrocardiac region in the lingula segment Exam: CT abdomen pelvis w con Date: 02/02/2017 446 PM Comparison: CT renal colic CT 06/18/2011 Indication: Abdominal pain Total DLP: 4107.7 mGy*cm Technical: Oral contrast was administered. Images were obtained from the lung bases to the iliac crest continuation through the pelvis with 100 cc of Omnipaque 350 with axial sagittal coronal imaging available for review. Dose reduction was performed with decreasing kv and mA and automated exposure Findings: Liver and Spleen: Unremarkable Gallbladder and Pancreas: Unremarkable Adrenals: Unremarkable Kidneys: Both kidneys are equally perfused and demonstrate no evidence for obstructive uropathy. Nonobstructing stone present in the left kidney measures 4 mm. Stomach: No obvious abnormality in the stomach with air fluid and debris Retroperitoneum: No enlarged lymph nodes. Aorta and IVC: No obvious aneurysm aorta vessels and IVC are unremarkable. Bowel and Mesentery: No evidence of diverticulosis diverticulitis or bowel obstruction present. Fat-containing periumbilical hernia is present. No evidence of appendicitis Pelvis: Bladder: Partially distended with fluid on the delayed images Fluid: No free fluid identified. Lymph nodes: Small nodes without significant enlargement lymph nodes in the inguinal regions bilaterally. Pelvic organs: The uterus is slightly deviated to the left. Mild thickening of the endometrium present. Left ovarian tissue measures approximately 4.1 cm with some cystic change. Right ovary is not well seen. Osseous structures: Degenerative changes lower thoracic spine. No obvious amount lumbar spine or pelvis. Impression: 1. Right nephrolithiasis with a stone in the lower pole the right kidney without obstruction 2. Probable left ovarian cyst without free fluid PROCEDURE INTERPRETED AT [facility] [place] DEPARTMENT OF RADIOLOGY Final Report Signed by: Dr. Augusto Frey
[2017-02-02] MEDS: ALBUTEROL/IPRATROPIUM 3 ML NEB RESP TX SCH (20:02)
[2017-02-02] MEDS: PIPERACILLIN/TAZOBACTAM 3,375 MG in SODIUM CHLORIDE 0.9% 100 ML IV SCH (21:11)
[2017-02-02] MEDS: ONDANSETRON 4 MG/2 ML VIAL IV PRN (21:36)
[2017-02-02] MEDS: MORPHINE 2 MG/1 ML SYRINGE IV PRN (21:39)
[2017-02-02] MEDS: MOMETASONE/FORMOTEROL 100-5 INHALER 8.8 GM INH SCH (21:50)
[2017-02-03] MEDS: ALBUTEROL/IPRATROPIUM 3 ML NEB RESP TX SCH ×4 (01:08→19:39)
[2017-02-03] MEDS: MORPHINE 2 MG/1 ML SYRINGE IV PRN ×3 (01:47→18:15)
[2017-02-03] MEDS: ONDANSETRON 4 MG/2 ML VIAL IV PRN ×3 (01:48→17:12)
[2017-02-03] MEDS: PIPERACILLIN/TAZOBACTAM 3,375 MG in SODIUM CHLORIDE 0.9% 100 ML IV SCH (04:48)
--- NOTE | 2017-02-03 08:36 | Hospitalist Progress Note ---
Assessment and Plan - Time spent with patient Time spent with patient: Greater than 30 minutes (1) Asthma with exacerbation Status: Acute Assessment and plan: We will continue on IV Levaquin. Adjust antibiotics with culture report as needed. Follow respiratory on blood cultures. Continue respiratory treatment. Pulmonology has been consulted, see their recommendation. Current Visit: No (2) Bronchiectasis Status: Acute Current Visit: No (3) Bacterial pneumonia Status: Acute Current Visit: No (4) Obstructive sleep apnea Status: Acute Current Visit: No (5) History of bronchiectasis Status: Acute Current Visit: Yes (6) Left lower lobe pneumonia Status: Acute Current Visit: Yes Hospitalist: Subjective Interval history: Young lady with a history of asthma and recurrent pneumonias. Admitted one more time for pneumonia with associated asthma exacerbation. There is no fever. No leukocytosis but CT scan and chest x-ray suggestive of infiltrate. She feels only slightly better this morning. Exam - Constitutional Vitals: Period Temp Pulse Resp BP Sys/Ramirez Pulse Ox Last 24 Hr 96.4 F-98.1 F 70-109 16-20 101-160/54-88 97-99 Exam: Constitutional System: No distress. No tremulousness. Flat affect Head: Normocephalic, atraumatic. Ears, Nose and Throat System: No evidence of Otitis or Mastoiditis. No epistaxis or discharge Eyes System: Pupils equal, round, and reactive. Extraocular muscles intact. Neck: Supple, without adenopathy, No jugular venous distention. No thyromegaly, neck mass, or prior surgery apparent. Respiratory System: Chest clear to auscultation. Cardiovascular System: Heart with regular rate and rhythm. No murmur. GI System: Abdomen soft, nontender. Normo active bowel sounds present. Musculoskeletal System: limbs with mild pedal edema. Full distal pulses. Neurological System: No discernable sensory deficit. No aphasia Psychiatric System: Conversation is rational Results - Labs CBC & BMP: 02/03/17 08:30 02/02/17 Unknown Lab Results: I have reviewed the past 24 hour labs - Diagnostic Findings Procedure: Chest x-ray: image reviewed by me, report reviewed by me, CT - chest : image reviewed by me, report reviewed by me
[2017-02-03 08:52] LABS: Basophils % 0.3 % (0.0-0.8); Eosinophils # 0.1 10*3/uL (0.0-0.87); Eosinophils % 0.7 % (0.00-10.9); Hematocrit 37.7 VOL% (35.7-47.0); Hemoglobin 12.3 GM/DL (12.0-16.0); Immature Granulocytes % 0.3 %; Immature Granulocytes Absolute 0.02 #; Lymphocytes % 29.1 % (21.3-54.2); Mean Corpuscular HGB Conc 32.6 GM/DL (32-36); Mean Corpuscular Hemoglobin 29 PG (27-34); Mean Corpuscular Volume 89.1 FL (87-102); Mean Platelet Volume 11.8 FL (9.6-12.0); Monocytes # 0.5 10*3/uL (0.11-0.8); Monocytes % 7.3 % (1.7-12.7); Neutrophils # 4.3 10*3/uL (1.4-7.4); Neutrophils % 62.3 % (38.7-73.9); Platelet Count 201 T/CUMM (130-400); Red Blood Count 4.23 MC/CUMM (3.8-5.5); White Blood Count 6.9 T/CUMM (4-12)
[2017-02-03] MEDS: MOMETASONE/FORMOTEROL 100-5 INHALER 8.8 GM INH SCH ×2 (09:13→20:57)
[2017-02-03] MEDS: PANTOPRAZOLE 40 MG TABLET PO SCH (09:14)
[2017-02-03] MEDS: guaiFENesin/DM ER 600-30 MG TABLET PO SCH ×2 (09:14→20:56)
--- NOTE | 2017-02-03 09:27 | XRay Report ---
Exam: XR chest 2V Date: 02/03/2017 4:00 AM Indication: Shortness of breath follow-up pneumonia Comparison: 02/02/2017 Technical: PA lateral Findings: Persistent area of atelectatic change infiltrate in the left base. The heart is normal in size. Mediastinum is intact. No pneumothorax. The bony structures are unremarkable. Impression: 1. Persistent left basilar pneumonic infiltrate unchanged. PROCEDURE INTERPRETED AT [facility] [place] DEPARTMENT OF RADIOLOGY Final Report Signed by: Dr. Augusto Frey
--- NOTE | 2017-02-03 09:51 | Pulmonology Consult Note ---
Assessment and Plan (1) Asthma with exacerbation Status: Acute Assessment and plan: Patient really not wheezing much. Would keep steroids to the minimum. Current Visit: No (2) Bronchiectasis Status: Acute Assessment and plan: Likely infected bronchiectasis. Tends to be gram-negative organisms such as Pseudomonas. Will adjust antibiotic coverage. If symptoms persist may need bronchoscopy to get cultures. Hopefully sputum cultures will be helpful. Current Visit: No (3) Bacterial pneumonia Status: Acute Assessment and plan: Continue antibiotics. Appears to have some pneumonia outside of the infected bronchiectasis Current Visit: No (4) Hilar adenopathy Status: Acute Assessment and plan: Has right hilar node that is 2.5 cm now. It was 1.[address] a year ago. This needs to be followed up. Could be an acute inflammatory response or a chronic process such as sarcoid or granulomatous disease. Will get a repeat CT in about 6 weeks. If it remains enlarged then consider PET scan and/or biopsy. Current Visit: Yes History of Present Illness Chief complaint: Cough congestion and thick green sputum History of present illness: Ms. Piedra is a 26 year old female whom I followed for about a year and a half. She has asthma which is not severe. She has bronchiectasis involving the lingula and left lower lobe. She had an earlier right hilar node that was slightly enlarged at 1.5 cm but apparently is larger at 2.5 cm now. The patient has been on bronchodilators. She has been on Zithromax to suppress infection. However she has had recurrent infections despite that. It may be time to change her to alternating antibiotics likely used to do for bronchiectasis. At any rate she comes in now with increased cough and green sputum production. This is likely to be something like Pseudomonas and needs broad-spectrum coverage. Home Medications Medication Instructions Recorded Confirmed Type Mometasone/Formoterol 100-5 2 puff INH BID 06/28/16 02/02/17 History [Dulera 100-5] Albuterol Inhaler [Proventil 2 puff INH Q6H PRN #1 inhaler 09/08/16 02/02/17 Rx Inhaler] Albuterol Neb [Proventil Neb] 2.5 mg RESP TX TID #90 vial 09/08/16 02/02/17 Rx Ciprofloxacin Tab [Cipro Tab] 500 mg PO BID 02/02/17 02/02/17 History Ketorolac Tab [Toradol Tab] 10 mg PO TID 02/02/17 02/02/17 History Promethazine Tab [Phenergan Tab] 25 mg PO Q4H 02/02/17 02/02/17 History buPROPion XL [Wellbutrin Xl] 150 mg PO DAILY 02/02/17 02/02/17 History Allergies Allergy/AdvReac Type Severity Reaction Status Date / Time No Known Allergies Allergy Verified 02/02/17 10:44 12 point system: reviewed and no additional remarkable complaints except as stated - Constitutional Constitutional: Present: fatigue - EENT Nose, mouth and throat: Present: nasal congestion - Cardiovascular Cardiovascular: Present: dyspnea, dyspnea on exertion, orthopnea - Respiratory Respiratory: Present: cough, dyspnea, dyspnea on exertion, change in phlegm color Exam (Pulmonay) H&P - Constitutional Vitals: Period Temp Pulse Resp BP Sys/Ramirez Pulse Ox Last 24 Hr 96.4 F-98.1 F 70-109 16-20 101-160/54-88 97-99 Exam: Vital signs are normal. O2 sat 99% on room air. Pupils react to light. Throat is clear. Neck supple no bruits. Chest reveals expiratory rhonchi over the lingula and left lower lobe. Prolonged expiratory phase. I do not hear any wheezes. Heart normal rate rhythm no murmurs. Abdomen soft nontender no masses. Extremities no clubbing cyanosis or edema. Calves nontender. Medical,Surgical,& Family Hx - Medical History Cardio: No history of: Hypertension Neurology: History of: Seizures (Childhood. Not on meds at this time.) Respiratory: History of: Asthma, Bronchitis (bronchiectasis), Respiratory Problems (bronchiectasis, chronic cough) - Surgical History HEENT Surgeries: Surgical HX of: Tonsilectomy & Adenoidectomy Reproductive Surgeries: Surgical HX of;: Gynecologic Surgery (breast reduction) - Family History Family History: Reports;: Family Cancer (grandmother,lung cancer), Family Hypertension - Social History Smoking Status: Never smoker Frequency of Alcohol Use: None Type of Drug Use: None Results - Labs CBC & BMP: 02/03/17 08:30 02/02/17 Unknown Lab Results: I have reviewed the past 24 hour labs - Diagnostic Findings Procedure: Chest x-ray: image reviewed by me (Patchy left lower lobe infiltrate in the area of previously noted bronchiectasis), CT - chest: image reviewed by me (Bronchiectasis lingula and left lower lobe with patchy infiltrate left base. Right hilar node that is 2.5 cm. This would be an R4 node. It is larger since previous CT.)
[2017-02-03] MEDS: MEROPENEM 1,000 MG in SODIUM CHLORIDE 0.9% 100 ML IV SCH ×2 (10:51→21:03)
[2017-02-03] MEDS: ENOXAPARIN 40 MG/0.4 ML SYRINGE SUBCUT SCH (15:34)
[2017-02-03] MEDS: LEVOFLOXACIN INJ 750 MG in PREMIX 1 EACH IV SCH (15:34)
[2017-02-04] MEDS: ALBUTEROL/IPRATROPIUM 3 ML NEB RESP TX SCH ×4 (00:04→19:58)
--- NOTE | 2017-02-04 07:58 | Pulmonology Progress Note ---
Pulmonary - PN: Subj Interval history: This 26-year-old black female has asthma and has bronchiectasis involving his left lower lobe and lingula. She came in with bronchopneumonia and infected bronchiectasis. Sputum cultures are pending. Patient is on Merrem and Levaquin. She is feeling better this morning. She is a bit hoarse. In addition she has a right hilar lymph node that is larger than it was a year ago increasing from 1.5 cm to 2.5 cm. Plans are to follow this radiographically. Exam (Progress Note) - Constitutional Vitals: Period Temp Pulse Resp BP Sys/Ramirez Pulse Ox Last 24 Hr 96.3 F-97.6 F 75-96 16-21 101-134/54-76 95-99 Exam: Patient's alert oriented vital signs normal. She is hoarse. Pupils react to light. Throat is clear. Neck supple no bruits. Chest reveals minimal rhonchi at the left base. No wheezing. Heart normal rate rhythm no murmurs. Abdomen soft nontender no masses. Extremities no clubbing cyanosis edema. Calves nontender. Results - Labs CBC & BMP: 02/03/17 08:30 02/02/17 Unknown Lab Results: I have reviewed the past 24 hour labs Assessment and Plan (1) Asthma with exacerbation Status: Acute Assessment and plan: Patient really not wheezing much. Would keep steroids to the minimum. 02/04/2017 no active bronchospasm. She is not requiring steroids. Current Visit: No (2) Bronchiectasis Status: Acute Assessment and plan: Likely infected bronchiectasis. Tends to be gram-negative organisms such as Pseudomonas. Will adjust antibiotic coverage. If symptoms persist may need bronchoscopy to get cultures. Hopefully sputum cultures will be helpful. 02/04/2017 has infected bronchiectasis and bronchopneumonia. Await cultures from sputum. Currently covered with Merrem and Levaquin, as she is likely to have a resistant gram-negative organism. Current Visit: No (3) Bacterial pneumonia Status: Acute Assessment and plan: Continue antibiotics. Appears to have some pneumonia outside of the infected bronchiectasis Current Visit: No (4) Hilar adenopathy Status: Acute Assessment and plan: Has right hilar node that is 2.5 cm now. It was 1.[address] a year ago. This needs to be followed up. Could be an acute inflammatory response or a chronic process such as sarcoid or granulomatous disease. Will get a repeat CT in about 6 weeks. If it remains enlarged then consider PET scan and/or biopsy. 02/04/2017 plans will be to follow this node radiographically. If it does not resolve over the next 6 weeks or so, would get a PET scan and consider biopsy. Current Visit: Yes
[2017-02-04] MEDS: MOMETASONE/FORMOTEROL 100-5 INHALER 8.8 GM INH SCH ×2 (09:19→21:59)
[2017-02-04] MEDS: MEROPENEM 1,000 MG in SODIUM CHLORIDE 0.9% 100 ML IV SCH ×2 (09:19→18:30)
[2017-02-04] MEDS: PANTOPRAZOLE 40 MG TABLET PO SCH (09:22)
[2017-02-04] MEDS: ENOXAPARIN 40 MG/0.4 ML SYRINGE SUBCUT SCH (09:22)
[2017-02-04] MEDS: guaiFENesin/DM ER 600-30 MG TABLET PO SCH ×2 (09:22→22:00)
[2017-02-04] MEDS: ONDANSETRON 4 MG/2 ML VIAL IV PRN ×2 (09:28→22:03)
--- NOTE | 2017-02-04 10:51 | Hospitalist Progress Note ---
Assessment and Plan (1) Bronchiectasis Status: Acute Assessment and plan: Patient is suspected to have a infected bronchiectasis/pneumonia. His sputum cultures pending patient has been on two antibiotics coverage as resistant bugs suspected by Dr. Bernard. Patient has been afebrile and will follow cultures Current Visit: Yes (2) Hilar adenopathy Status: Acute Assessment and plan: Increasing size of hilar lymphadenopathy which is planned to be followed by Dr. Bernard with repeat CT in 6 weeks Current Visit: Yes (3) Left lower lobe pneumonia Status: Acute Assessment and plan: Patient has been on antibiotics for suspected pneumonia/infected bronchiectasis follow sputum culture. Dr. Bernard plan to do bronchoscopy if patient clinically worsen. Fortunately patient is symptomatically stable to improved Current Visit: Yes (4) Asthma with exacerbation Status: Acute Assessment and plan: Her breathing is stable without distress and any gross wheezing/rhonchi she is known and described will continue with the current regimen of bronchodilators with the inhaled steroids Current Visit: No (5) Obstructive sleep apnea Status: Acute Current Visit: No Hospitalist: Subjective Interval history: Patient with history of asthma and bronchiectasis admitted with the cough and congestion with shortness of breath and pleuritic chest pain. She has been treated for asthma exacerbation and infected bronchiectasis/pneumonia. Pulmonary following waiting for the sputum culture result. Patient symptomatically improved afebrile. No acute symptoms reported Exam - Constitutional Vitals: Period Temp Pulse Resp BP Sys/Ramirez Pulse Ox Last 24 Hr 96.1 F-97.6 F 76-96 16-22 116-134/60-76 95-100 General appearance: no acute distress, morbidly obese - Respiratory Respiratory exam: Present: clear to auscultation bilaterally. Absent: rales, rhonchi - Cardiovascular Cardiovascular exam: Present: regular rate and rhythm. Absent: tachycardia - GI/Abdominal GI/Abdominal exam: Present: normal bowel sounds, soft. Absent: distended, tenderness - Extremities Exam Extremities exam: Present: normal inspection. Absent: edema - Neurological Exam Neurological exam: Present: alert, oriented X3 Results - Labs CBC & BMP: 02/03/17 08:30 02/02/17 Unknown Lab Results: I have reviewed the past 24 hour labs
[2017-02-04] MEDS: LEVOFLOXACIN INJ 750 MG in PREMIX 1 EACH IV SCH (16:13)
[2017-02-05] MEDS: ALBUTEROL/IPRATROPIUM 3 ML NEB RESP TX SCH ×2 (01:37→07:17)
[2017-02-05] MEDS: MEROPENEM 1,000 MG in SODIUM CHLORIDE 0.9% 100 ML IV SCH ×2 (02:45→08:50)
--- NOTE | 2017-02-05 07:55 | Pulmonology Progress Note ---
Pulmonary - PN: Subj Interval history: This 26-year-old black female has asthma and has bronchiectasis involving his left lower lobe and lingula. She came in with bronchopneumonia and infected bronchiectasis. Sputum cultures are pending. Patient is on Merrem and Levaquin. She is feeling better this morning. She is a bit hoarse. In addition she has a right hilar lymph node that is larger than it was a year ago increasing from 1.5 cm to 2.5 cm. Plans are to follow this radiographically. 02/05/2017 patient is feeling much better. Sputum is only growing normal ky. It would be okay with me for her to be discharged on oral Levaquin for another 5 days. I can see her back in the clinic in about 2 weeks. She needs a follow-up CT of the chest in about 6 weeks for the right hilar adenopathy. Exam (Progress Note) - Constitutional Vitals: Period Temp Pulse Resp BP Sys/Ramirez Pulse Ox Last 24 Hr 96.1 F-97.8 F 60-89 16-25 121-144/62-78 95-100 Exam: Patient's alert oriented vital signs normal. She is hoarse. Pupils react to light. Throat is clear. Neck supple no bruits. Chest reveals minimal rhonchi at the left base. No wheezing. Heart normal rate rhythm no murmurs. Abdomen soft nontender no masses. Extremities no clubbing cyanosis edema. Calves nontender. Results - Labs CBC & BMP: 02/03/17 08:30 02/02/17 Unknown Lab Results: I have reviewed the past 24 hour labs Assessment and Plan (1) Asthma with exacerbation Status: Acute Assessment and plan: Patient really not wheezing much. Would keep steroids to the minimum. 02/04/2017 no active bronchospasm. She is not requiring steroids. 02/05/2017 no wheezing. Continue home asthma medicines. Current Visit: No (2) Bronchiectasis Status: Acute Assessment and plan: Likely infected bronchiectasis. Tends to be gram-negative organisms such as Pseudomonas. Will adjust antibiotic coverage. If symptoms persist may need bronchoscopy to get cultures. Hopefully sputum cultures will be helpful. 02/04/2017 has infected bronchiectasis and bronchopneumonia. Await cultures from sputum. Currently covered with Merrem and Levaquin, as she is likely to have a resistant gram-negative organism. 02/05/2017 since her sputum is only showing normal ky, we could go to oral Levaquin and let her go home. Needs another 5 days or so. Current Visit: No (3) Bacterial pneumonia Status: Acute Assessment and plan: Continue antibiotics. Appears to have some pneumonia outside of the infected bronchiectasis Current Visit: No (4) Hilar adenopathy Status: Acute Assessment and plan: Has right hilar node that is 2.5 cm now. It was 1.[address] a year ago. This needs to be followed up. Could be an acute inflammatory response or a chronic process such as sarcoid or granulomatous disease. Will get a repeat CT in about 6 weeks. If it remains enlarged then consider PET scan and/or biopsy. 02/04/2017 plans will be to follow this node radiographically. If it does not resolve over the next 6 weeks or so, would get a PET scan and consider biopsy. 02/05/2017 I will follow up and get CT in 6 weeks. Current Visit: Yes
[2017-02-05] MEDS: ENOXAPARIN 40 MG/0.4 ML SYRINGE SUBCUT SCH (08:51)
[2017-02-05] MEDS: guaiFENesin/DM ER 600-30 MG TABLET PO SCH (08:51)
[2017-02-05] MEDS: PANTOPRAZOLE 40 MG TABLET PO SCH (08:51)
--- NOTE | 2017-02-05 09:30 | Discharge Summary ---
Hospital Course - Hospital Course Hospital Course: Ms. Piedra is a 26-year-old female with history of bronchiectasis involving the lingula and left lower lobe and asthma with recurrent infection . She was admitted with increased cough and sputum production. She was a started on antibiotics including meropenem and Levaquin. She will continue on bronchodilator therapy. She was seen by Dr. Bernard. She improved clinically feeling better without any fever had a sputum culture which showed normal ky. She is recommended to continue on Levaquin and follow an outpatient by Dr. Bernard. Her CT scan showed right hilar node 2.5 cm which was at 1.5 cm about a year ago. Dr. Bernard plan to repeat CT in 6 weeks. She has received maximum benefit from hospitalization will be discharged to follow-up with Dr. Bernard in her primary care physician Dr. Crowe. She need to return if symptoms recur or has fever Diagnosis - Discharge Diagnosis (1) Bronchiectasis Status: Chronic (2) Hilar adenopathy Status: Chronic (3) Left lower lobe pneumonia Status: Acute (4) Asthma with exacerbation Status: Acute (5) Obstructive sleep apnea Status: Chronic Discharge Plan - Discharge Data Disposition: Disch To Home/Self Care Discharge Diet: advance to your usual diet Activity: resume usual activities as tolerated Contact your physician if you experience:: fever over 101 - Discharge Medications New guaiFENesin/DM ER 600-30 [Mucinex Dm 600-30 MG] 1 tablet PO BID #30 tablet Levofloxacin Tab [Levaquin Tab] 750 mg PO DAILY #5 tablet Continue Ketorolac Tab [Toradol Tab] 10 mg PO TID buPROPion XL [Wellbutrin Xl] 150 mg PO DAILY Promethazine Tab [Phenergan Tab] 25 mg PO Q4H Mometasone/Formoterol 100-5 [Dulera 100-5] 2 puff INH BID Albuterol Inhaler [Proventil Inhaler] 2 puff INH Q6H PRN #1 inhaler PRN Reason: Shortness Of Breath/Wheezing Albuterol Neb [Proventil Neb] 2.5 mg RESP TX TID #90 vial Discontinued Ciprofloxacin Tab [Cipro Tab] 500 mg PO BID - Follow Up or Referral Follow Up: Gene Bernard MD [Physician] - Nikko Crowe [Primary Care Provider] - - Forms/Instructions Exam - Constitutional Vitals: Period Temp Pulse Resp BP Sys/Ramirez Pulse Ox Last 24 Hr 96.7 F-97.8 F 60-89 16-25 121-144/63-78 95-100 General appearance: no acute distress, morbidly obese - Respiratory Respiratory exam: Present: clear to auscultation bilaterally. Absent: rales, rhonchi - Cardiovascular Cardiovascular exam: Present: regular rate and rhythm. Absent: tachycardia - GI/Abdominal GI/Abdominal exam: Present: normal bowel sounds, soft. Absent: distended, tenderness - Extremities Exam Extremities exam: Present: normal inspection. Absent: edema - Neurological Exam Neurological exam: Present: alert, oriented X3 Discharge Results Procedures and tests throughout hospitalization: Pending Orders 02/02/17 02:00 Sputum Culture and Gram Stain Routine 02/03/17 10:50 QuantiFERON-TB Gold In-Tube, B Routine 02/04/17 05:41 Angiotensin Converting Enzyme IN AM 02/04/17 17:30 AFB Culture/Smears Routine 03/26/17 07:55 CT chest wo con Routine Labs on day of discharge: Preliminary micro results at discharge 02/02/17 02:00 Sputum Culture - Preliminary Sputum Normal Ky at 24 hours DS: Provider Date of admission: 02/02/17 14:12 Primary care physician: Nikko Crowe Attending physician on admission: Kirby Ferrer MD Consults: 02/02/17 14:35 Consult to Physician [CONS] Routine Comment: pt of yours, pneum failed OP Consulting Provider: Gene Bernard When should Consulting Provider be notified: In am Person Notified: Dr. Bernard Date Notified: 02/03/17 Time Notified: 09:16 02/02/17 15:18 Consult to Dietitian [CONS] Routine Reason for Dietitian: Dietary Consult Discharging clinician: Calixto Rosales MD
[2017-02-05 09:32] VITALS: BP 140/77
[2017-02-05] MEDS: MOMETASONE/FORMOTEROL 100-5 INHALER 8.8 GM INH SCH (11:02)
[2017-02-05 16:33] LABS: TB Ag minue Nil Result 0 IU/mL
== END 2017-02-05 11:10 | disposition home or self-care (01) | DRG 194 ==
LOC: N.ED 10:39 → N.EDINP 14:12 → SUATTDRO 14:12 → N.2E 15:02
PROVIDERS: ADMIT Hospitalist; ATTEND Internal Medicine

== ENCOUNTER 2017-04-17 12:49 | Inpatient (IN) ==
[2017-04-17] MEDS ORDERED: ALBUTEROL/IPRATROPIUM 3 ML NEB RESP TX STA (14:39)
[2017-04-17] MEDS ORDERED: cefTRIAXone 1,000 MG in SODIUM CHLORIDE 0.9% 100 ML IV STA (14:39)
[2017-04-17] MEDS ORDERED: HYDROcodone/CHLORPHENIRAMINE ER 5 ML UDCUP PO ONE ×2 (14:39→15:03)
[2017-04-17] MEDS ORDERED: cefTRIAXone 1,000 MG VIAL ONE (14:55)
[2017-04-17] MEDS ORDERED: LORazepam 1 MG TABLET PO STA (14:57)
[2017-04-17] MEDS ORDERED: ONDANSETRON 4 MG/2 ML VIAL IV STA (14:58)
[2017-04-17] MEDS ORDERED: ONDANSETRON 4 MG/2 ML VIAL ONE (15:10)
[2017-04-17 15:27] LABS: Basophils % 0.1 % (0.0-0.8); Hematocrit 38.6 VOL% (35.7-47.0); Hemoglobin 12.8 GM/DL (12.0-16.0); Immature Granulocytes % 0.4 %; Immature Granulocytes Absolute 0.06 #; Lymphocytes # 0.7 10*3/uL (1.4-4.0); Lymphocytes % 4.5 % (21.3-54.2); Mean Corpuscular HGB Conc 33.2 GM/DL (32-36); Mean Corpuscular Hemoglobin 30 PG (27-34); Mean Corpuscular Volume 88.9 FL (87-102); Mean Platelet Volume 11.6 FL (9.6-12.0); Monocytes # 0.6 10*3/uL (0.11-0.8); Monocytes % 4.2 % (1.7-12.7); Neutrophils # 13.8 10*3/uL (1.4-7.4); Neutrophils % 90.8 % (38.7-73.9); Platelet Count 195 T/CUMM (130-400); Red Blood Count 4.34 MC/CUMM (3.8-5.5); Red Cell Distribution Width 12.6 % (9.3-17.3); White Blood Count 15.2 T/CUMM (4-12)
[2017-04-17 15:36] LABS: Albumin 3.8 G/DL (3.4-5.0); Bilirubin,Total 0.6 MG/DL (0.2-1.0); Calcium 9.1 MG/DL (8.5-10.1); Osmolality,Calculated 265.2 MOS/KG (273-304); Potassium 4.3 MMOL/L (3.5-5.1); Total Protein 7.6 G/DL (6.4-8.3)
[2017-04-17 15:38] LABS: Lactic Acid 2.6 MMOL/L (0.4-2.0)
[2017-04-17] MEDS ORDERED: ACETAMINOPHEN 500 MG TABLET PO STA (15:54)
[2017-04-17] MEDS ORDERED: ACETAMINOPHEN 500 MG TABLET ONE (15:55)
[2017-04-17 16:10] LABS: Lymphocytes 8 % (20-55); Segmented Neutrophils 86 % (50-85); Total Cells Counted 100
[2017-04-17 16:11] LABS: Platelet Estimate Adequate
[2017-04-17] MEDS ORDERED: SODIUM CHLORIDE 0.9% 1,000 ML IV STA (16:28)
[2017-04-17] MEDS ORDERED: ONDANSETRON 4 MG/2 ML VIAL IV PRN (18:23)
[2017-04-17] MEDS ORDERED: ALBUTEROL/IPRATROPIUM 3 ML NEB RESP TX PRN (18:23)
[2017-04-17] MEDS: ACETAMINOPHEN 325 MG TABLET PO PRN (19:01)
[2017-04-17] MEDS: LEVOFLOXACIN INJ 750 MG in PREMIX 1 EACH IV SCH (19:02)
[2017-04-17] MEDS: KETOROLAC 15 MG/1 ML VIAL IV PRN (21:32)
[2017-04-17] MEDS: ALUMINUM/MAGNES/SIMETH MAX STR 30 ML UDCUP PO PRN (21:36)
[2017-04-18] MEDS: ACETAMINOPHEN 325 MG TABLET PO PRN (02:06)
[2017-04-18 04:38] LABS: Basophils % 0.1 % (0.0-0.8); Eosinophils % 0.5 % (0.00-10.9); Hematocrit 34.7 VOL% (35.7-47.0); Hemoglobin 11.3 GM/DL (12.0-16.0); Immature Granulocytes % 0.3 %; Immature Granulocytes Absolute 0.03 #; Lymphocytes # 1.3 10*3/uL (1.4-4.0); Lymphocytes % 14.7 % (21.3-54.2); Mean Corpuscular HGB Conc 32.6 GM/DL (32-36); Mean Corpuscular Hemoglobin 29 PG (27-34); Mean Corpuscular Volume 88.7 FL (87-102); Mean Platelet Volume 11.3 FL (9.6-12.0); Monocytes # 0.8 10*3/uL (0.11-0.8); Monocytes % 9.1 % (1.7-12.7); Neutrophils # 6.5 10*3/uL (1.4-7.4); Neutrophils % 75.3 % (38.7-73.9); Platelet Count 174 T/CUMM (130-400); Red Blood Count 3.91 MC/CUMM (3.8-5.5); Red Cell Distribution Width 12.6 % (9.3-17.3); White Blood Count 8.7 T/CUMM (4-12)
[2017-04-18 05:06] LABS: Calcium 8.4 MG/DL (8.5-10.1); Potassium 3.7 MMOL/L (3.5-5.1)
[2017-04-18] MEDS: methylPREDNISolone SOD SUC 40 MG/1 ML VIAL IV SCH ×2 (09:51→21:37)
[2017-04-18] MEDS: PIPERACILLIN/TAZOBACTAM 3,375 MG in SODIUM CHLORIDE 0.9% 100 ML IV SCH ×2 (09:52→17:09)
[2017-04-18] MEDS: PANTOPRAZOLE 40 MG TABLET PO SCH (09:52)
[2017-04-18] MEDS: KETOROLAC 15 MG/1 ML VIAL IV PRN ×2 (10:25→17:09)
[2017-04-18] MEDS: ALUMINUM/MAGNES/SIMETH MAX STR 30 ML UDCUP PO PRN (14:42)
[2017-04-18] MEDS: LEVOFLOXACIN INJ 750 MG in PREMIX 1 EACH IV SCH ×2 (17:08→18:23)
[2017-04-19] MEDS: PIPERACILLIN/TAZOBACTAM 3,375 MG in SODIUM CHLORIDE 0.9% 100 ML IV SCH ×2 (01:40→09:06)
[2017-04-19 06:47] LABS: Basophils % 0.2 % (0.0-0.8); Hematocrit 39.4 VOL% (35.7-47.0); Hemoglobin 12.9 GM/DL (12.0-16.0); Immature Granulocytes % 0.6 %; Immature Granulocytes Absolute 0.08 #; Lymphocytes # 0.9 10*3/uL (1.4-4.0); Lymphocytes % 6.5 % (21.3-54.2); Mean Corpuscular HGB Conc 32.7 GM/DL (32-36); Mean Corpuscular Hemoglobin 29 PG (27-34); Mean Corpuscular Volume 89.1 FL (87-102); Monocytes # 0.3 10*3/uL (0.11-0.8); Monocytes % 2.5 % (1.7-12.7); Neutrophils # 11.7 10*3/uL (1.4-7.4); Neutrophils % 90.2 % (38.7-73.9); Platelet Count 213 T/CUMM (130-400); Red Blood Count 4.42 MC/CUMM (3.8-5.5); Red Cell Distribution Width 12.9 % (9.3-17.3)
[2017-04-19 07:12] LABS: Calcium 9.2 MG/DL (8.5-10.1); Magnesium 2.3 MG/DL (1.8-2.4); Osmolality,Calculated 278.7 MOS/KG (273-304); Potassium 4.3 MMOL/L (3.5-5.1)
[2017-04-19 07:28] LABS: Risk Ratio 3.55; Thyroid Stimulating Hormone 0.214 uIU/ml (0.358-3.74); VLDL CHOLESTEROL 12.6 MG/DL
[2017-04-19] MEDS: PANTOPRAZOLE 40 MG TABLET PO SCH (09:04)
[2017-04-19] MEDS: methylPREDNISolone SOD SUC 40 MG/1 ML VIAL IV SCH (09:04)
[2017-04-19 15:16] VITALS: BP 120/58
== END 2017-04-19 17:13 | disposition home or self-care (01) | DRG 871 ==
LOC: N.ED 12:49 → SUATTDRO 16:08 → N.EDINP 16:08 → N.5E 18:05
PROVIDERS: ADMIT Hospitalist; ATTEND Internal Medicine

== ENCOUNTER 2017-09-30 08:14 | Inpatient (IN) ==
[2017-09-30] MEDS ORDERED: ALBUTEROL 2.5 MG/3 ML NEB RESP TX STA (08:32)
[2017-09-30 08:55] LABS: Basophils # 0.1 10*3/uL (0.0-0.2); Basophils % 0.3 % (0.0-0.8); Eosinophils # 0.2 10*3/uL (0.0-0.87); Eosinophils % 1.5 % (0.00-10.9); Hematocrit 36.3 VOL% (35.7-47.0); Hemoglobin 11.8 GM/DL (12.0-16.0); Immature Granulocytes % 0.7 %; Lymphocytes # 1.4 10*3/uL (1.4-4.0); Mean Corpuscular HGB Conc 32.5 GM/DL (32-36); Mean Corpuscular Hemoglobin 29 PG (27-34); Mean Corpuscular Volume 89.4 FL (87-102); Monocytes # 1.3 10*3/uL (0.11-0.8); Monocytes % 8.4 % (1.7-12.7); Neutrophils # 12.3 10*3/uL (1.4-7.4); Neutrophils % 80.1 % (38.7-73.9); Platelet Count 221 T/CUMM (130-400); Red Blood Count 4.06 MC/CUMM (3.8-5.5); Red Cell Distribution Width 12.9 % (9.3-17.3); White Blood Count 15.4 T/CUMM (4-12)
[2017-09-30 08:56] LABS: ABG Base Excess -1.1 MMOL/L (-2.5-2.5); ABG HCO3 23.4 MMOL/L (20-26); ABG Oxygen Saturation 95.5 % (95-100); ABG PCO2 30.1 MM HG (35-48); ABG PH 7.465 (7.35-7.45); ABG PO2 70.4 MM HG (80-95); ABG TCO2 19.2 MMOL/L (23-27)
[2017-09-30 09:04] LABS: PT Patient Result 10.5 SECS; Partial Thromboplastin Time 29.9 SECS (0-40)
[2017-09-30 09:19] LABS: Albumin 3.3 G/DL (3.4-5.0); Bilirubin,Total 0.5 MG/DL (0.2-1.0); Calcium 8.8 MG/DL (8.5-10.1); Osmolality,Calculated 265.2 MOS/KG (273-304); Potassium 5.5 MMOL/L (3.5-5.1); Total Protein 8.5 G/DL (6.4-8.3)
[2017-09-30] MEDS ORDERED: LEVOFLOXACIN INJ 500 MG in PREMIX 1 EACH IV STA (09:44)
[2017-09-30] MEDS ORDERED: LEVOFLOXACIN INJ 100 ML IV ONE (10:03)
[2017-09-30] MEDS: ALBUTEROL 2.5 MG/3 ML NEB RESP TX SCH ×3 (15:56→23:00)
[2017-09-30 16:59] LABS: Apearance,Urine CLEAR (Clear); Bacteria,Urine Occasional /HPF (Few); Bilirubin,Urine Negative (Negative); Blood, Urine Negative (Negative); Glucose,Urine (UA) Negative (Negative); Ketones,Urine Negative (Negative); Mucus,Urine Occasional /LPF (Occasional); Nitrite,Urine Negative (Negative); Protein,Urine Negative; RBC,Urine 5 /HPF (0-4); Squamous Epithelial Cell,Urine Occasional /HPF (0-10); Urine Color Yellow (Yellow); WBC,Urine 1 /HPF (0-6)
[2017-09-30 17:38] LABS: Barbiturates Screen,Urine Negative (Negative); Benzodiazepines Screen,Urine Negative (Negative); Cannabinoid Screen,Urine Negative (Negative); Opiate Screen,Urine Positive (Negative); Phencyclidine Screen,Urine Negative (Negative)
[2017-09-30] MEDS: METOPROLOL TARTRATE 25 MG TABLET PO SCH (20:10)
[2017-10-01] MEDS: ALBUTEROL 2.5 MG/3 ML NEB RESP TX SCH ×5 (03:30→19:24)
[2017-10-01] MEDS: ONDANSETRON 4 MG/2 ML VIAL IV PRN ×2 (04:40→21:26)
[2017-10-01] MEDS: PANTOPRAZOLE 40 MG TABLET PO SCH (07:40)
[2017-10-01 07:54] LABS: Basophils # 0.1 10*3/uL (0.0-0.2); Basophils % 0.3 % (0.0-0.8); Eosinophils # 0.2 10*3/uL (0.0-0.87); Eosinophils % 1.2 % (0.00-10.9); Hematocrit 33.1 VOL% (35.7-47.0); Hemoglobin 10.7 GM/DL (12.0-16.0); Immature Granulocytes % 1.2 %; Immature Granulocytes Absolute 0.19 #; Lymphocytes # 2.2 10*3/uL (1.4-4.0); Lymphocytes % 14.2 % (21.3-54.2); Mean Corpuscular HGB Conc 32.3 GM/DL (32-36); Mean Corpuscular Hemoglobin 29 PG (27-34); Mean Corpuscular Volume 88.3 FL (87-102); Mean Platelet Volume 12.6 FL (9.6-12.0); Monocytes # 1.9 10*3/uL (0.11-0.8); Monocytes % 12.5 % (1.7-12.7); Neutrophils # 10.8 10*3/uL (1.4-7.4); Neutrophils % 70.6 % (38.7-73.9); Platelet Count 171 T/CUMM (130-400); Red Blood Count 3.75 MC/CUMM (3.8-5.5); Red Cell Distribution Width 12.9 % (9.3-17.3); White Blood Count 15.3 T/CUMM (4-12)
[2017-10-01 08:27] LABS: Albumin 2.9 G/DL (3.4-5.0); Bilirubin,Direct 0.31 MG/DL (0.0-0.20); Bilirubin,Indirect 0.3 MG/DL (0.0-1.0); Bilirubin,Total 0.6 MG/DL (0.2-1.0); Total Protein 6.5 G/DL (6.4-8.3)
[2017-10-01] MEDS: METOPROLOL TARTRATE 25 MG TABLET PO SCH ×2 (08:30→20:26)
[2017-10-01] MEDS: LEVOFLOXACIN INJ 750 MG in PREMIX 1 EACH IV SCH (08:30)
[2017-10-01 08:35] LABS: Osmolality,Calculated 269.8 MOS/KG (273-304); Potassium 3.2 MMOL/L (3.5-5.1); Thyroid Stimulating Hormone 2.19 uIU/ml (0.358-3.74)
[2017-10-01] MEDS: MEROPENEM 500 MG in SYRINGE 1 EACH IV SCH ×2 (11:29→20:26)
[2017-10-01] MEDS: methylPREDNISolone SOD SUC 40 MG/1 ML VIAL IV SCH ×2 (11:29→20:26)
[2017-10-02] MEDS: ALBUTEROL 2.5 MG/3 ML NEB RESP TX SCH ×5 (00:39→14:42)
[2017-10-02 05:19] LABS: Basophils # 0.1 10*3/uL (0.0-0.2); Basophils % 0.4 % (0.0-0.8); Hematocrit 34.4 VOL% (35.7-47.0); Hemoglobin 11.4 GM/DL (12.0-16.0); Immature Granulocytes % 3.5 %; Immature Granulocytes Absolute 0.57 #; Lymphocytes # 1.4 10*3/uL (1.4-4.0); Lymphocytes % 8.5 % (21.3-54.2); Mean Corpuscular HGB Conc 33.1 GM/DL (32-36); Mean Corpuscular Hemoglobin 29 PG (27-34); Mean Corpuscular Volume 87.3 FL (87-102); Mean Platelet Volume 12.4 FL (9.6-12.0); Monocytes # 0.6 10*3/uL (0.11-0.8); Monocytes % 3.6 % (1.7-12.7); Neutrophils # 13.9 10*3/uL (1.4-7.4); Platelet Count 217 T/CUMM (130-400); Red Blood Count 3.94 MC/CUMM (3.8-5.5); Red Cell Distribution Width 12.6 % (9.3-17.3); White Blood Count 16.5 T/CUMM (4-12)
[2017-10-02 05:49] LABS: Osmolality,Calculated 276.8 MOS/KG (273-304)
[2017-10-02 05:59] LABS: Band Neutrophils 3 % (0-10); Lymphocytes 10 % (20-55); Metamyelocytes 1 %; Myelocytes 1 %; Segmented Neutrophils 79 % (50-85); Total Cells Counted 100
[2017-10-02 06:00] LABS: Hypochromasia 1+; Microcytosis Slight; Platelet Estimate Normal; Polychromasia Slight
[2017-10-02 06:01] LABS: Giant Platelets Few
[2017-10-02] MEDS: METOPROLOL TARTRATE 25 MG TABLET PO SCH (08:57)
[2017-10-02] MEDS: PANTOPRAZOLE 40 MG TABLET PO SCH (08:57)
[2017-10-02] MEDS: MEROPENEM 500 MG in SYRINGE 1 EACH IV SCH (08:58)
[2017-10-02] MEDS: methylPREDNISolone SOD SUC 40 MG/1 ML VIAL IV SCH (08:58)
[2017-10-02] MEDS: LEVOFLOXACIN INJ 750 MG in PREMIX 1 EACH IV SCH (08:58)
[2017-10-02] MEDS ORDERED: LACTULOSE 20 GM/30 ML UDCUP PO PRN (09:30)
[2017-10-02] MEDS ORDERED: DOCUSATE SODIUM 100 MG CAPSULE PO PRN (09:30)
[2017-10-02 11:48] VITALS: BP 127/83
== END 2017-10-02 16:11 | disposition home or self-care (01) | DRG 194 ==
LOC: N.ED 08:14 → SUATTDRO 10:26 → N.EDINP 10:26 → N.2E 12:24
PROVIDERS: ATTEND Hospitalist